=== PATIENT | female | born 1970 | race Caucasian/White ===

== ENCOUNTER → 2016-10-29 | Outpatient (CLI) | payer MEDICARE, OTHER ==
--- NOTE | 2016-10-29 12:16 | MM ---
Reason for exam: follow-up at short interval from prior study. Last mammogram was performed 6 months ago. History: Patient is nulliparous. Taking hormonal contraceptives for 22 years beginning at age 23. Physical Findings: Nurse did not find any significant physical abnormalities on exam. MG 3D Diag Mammo W/Cad MATHEW Bilateral CC and MLO view(s) were taken. ML view(s) were taken of the left breast. Prior study comparison: April 25, 2016, left breast MG 3d diag mammo w/cad LT. October 18, 2015, bilateral MG 3d diag mammo w/cad MATHEW. August 24, 2014, bilateral MG screening mammo w CAD. December 09, 2012, bilateral digital screening mammo w/CAD. The breast tissue is heterogeneously dense. This may lower the sensitivity of mammography. Nodularity far posteriorly and centrally left CC view stable for 1 year. Two areas of nodularity lateral left breast appear more defined, likely upper outer quadrant. These results were verbally communicated with the patient and result sheet given to the patient on 10/29/16. ASSESSMENT: Incomplete: need additional imaging evaluation, BI-RAD 0 RECOMMENDATION: Ultrasound of the left breast. (12-6 o'clock)
--- NOTE | 2016-10-29 12:18 | USB ---
Reason for exam: additional evaluation requested from abnormal screening. History: Patient is nulliparous. Taking hormonal contraceptives for 22 years beginning at age 23. US Breast Workup Limited LT Left breast ultrasound demonstrates a 0.6 x 0.3 x 0.6cm oval, cystic lesion at 3 o'clock, benign and a 1.6 x 0.4 x 1.4cm oval, cystic cluster versus complex cyst at 3 o'clock, follow up in 6 months. These results were verbally communicated with the patient and result sheet given to the patient on 10/29/16. ASSESSMENT: Probably benign, BI-RAD 3 RECOMMENDATION: Follow-up diagnostic mammogram and ultrasound of the left breast in 6 months.
== END | disposition home or self-care (01) ==
LOC: RADMAMWWP 10:40
PROVIDERS: ATTEND Obstetrics & Gynecology
DX: R92.8 Other abnormal and inconclusive findings on diagnostic imaging of breast (principal)
CPT/HCPCS: 76642; G0204; G0279

== ENCOUNTER → 2017-03-12 | Outpatient (CLI) | payer MEDICARE, OTHER ==
--- NOTE | 2017-03-12 14:33 | CT ---
EXAMINATION TYPE: CT brain wo/w con DATE OF EXAM: 03/12/2017 COMPARISON: NONE HISTORY: Headaches, dizziness and loss of balance CT DLP: 1891.0 mGycm Automated exposure control for dose reduction was used. CONTRAST: Preliminary CT head without contrast was performed. Then, CT scan of the head was performed with IV Contrast, patient injected with 100 mL of Omnipaque 300. FINDINGS: The precontrast CT is negative for hemorrhage or other noncontrast CT findings. There is no abnormal enhancing mass or midline shift identified. The ventricles and sulci are within normal rosas its in size. The globes are intact and the visualized sinuses are clear. IMPRESSION: NEGATIVE EXAMINATION, HEAD CT WITHOUT AND WITH CONTRAST.
== END | disposition home or self-care (01) ==
LOC: RADCTMAIN 13:27
PROVIDERS: ATTEND Psychiatry & Neurology Neurology
DX: R42 Dizziness and giddiness (principal); R51 Headache
CPT/HCPCS: 70470; Q9967

== ENCOUNTER → 2017-04-29 | Outpatient (CLI) | payer MEDICARE, OTHER ==
[2017-04-29 13:26] LABS: Hemoglobin A1C 5.5 % (4.2-6.1)
--- NOTE | 2017-05-01 07:18 | MM ---
Reason for exam: follow-up at short interval from prior study. Last mammogram was performed 6 months ago. History: Patient is nulliparous. Taking hormonal contraceptives for 22 years beginning at age 23. Physical Findings: Nurse did not find any significant physical abnormalities on exam. MG 3D Diag Mammo W/Cad LT CC and MLO view(s) were taken of the left breast. Prior study comparison: October 29, 2016, bilateral MG 3d diag mammo w/cad MATHEW. October 29, 2016, left breast US breast workup limited LT. April 25, 2016, left breast MG 3d diag mammo w/cad LT. The breast tissue is heterogeneously dense. This may lower the sensitivity of mammography. There is no discrete abnormality. These results were verbally communicated with the patient and result sheet given to the patient on 04/29/17. ASSESSMENT: Benign, BI-RAD 2 RECOMMENDATION: Routine screening mammogram of both breasts in 6 months. Back on schedule.
--- NOTE | 2017-05-01 07:25 | USB ---
Reason for exam: follow-up at short interval from prior study. History: Patient is nulliparous. Taking hormonal contraceptives for 22 years beginning at age 23. US Breast LT Left breast ultrasound includes all four quadrants, the retroareolar region and axilla. Finding demonstrate no cystic or solid lesion greater than 0.50c, and a 1.0 x 0.4 x 0.7cm lobular cystic cluster at 3 o'clock seen on previous. These results were verbally communicated with the patient and result sheet given to the patient on 04/29/17. ASSESSMENT: Benign, BI-RAD 2 RECOMMENDATION: Routine screening mammogram of both breasts in 6 months.
== END | disposition home or self-care (01) ==
LOC: RADMAMWWP 09:28
PROVIDERS: ATTEND Internal Medicine
DX: R92.8 Other abnormal and inconclusive findings on diagnostic imaging of breast (principal); F31.60 Bipolar disorder, current episode mixed, unspecified; Z79.899 Other long term (current) drug therapy
CPT/HCPCS: 83036; 80336; 76641; G0206; G0279

== ENCOUNTER → 2017-06-04 | Outpatient (CLI) | payer MEDICARE, OTHER | END | disposition home or self-care (01) | LOC: LABWHC1 14:56 | PROVIDERS: ATTEND Nurse Practitioner Acute Care | DX: R90.82 White matter disease, unspecified (principal) | CPT/HCPCS: 36415; 82040; 82042; 82784; 83916 ==

== ENCOUNTER → 2017-11-01 | Outpatient (CLI) | payer MEDICARE, OTHER ==
--- NOTE | 2017-11-04 11:32 | MM ---
Reason for exam: screening (asymptomatic). Last mammogram was performed 6 months ago. History: Patient is nulliparous. Taking hormonal contraceptives for 22 years beginning at age 23. Physical Findings: A clinical breast exam by your physician is recommended on an annual basis and results should be correlated with mammographic findings. MG 3D Screening Mammo W/Cad Bilateral CC and MLO view(s) were taken. XCCL view(s) were taken of the right breast. Prior study comparison: April 29, 2017, left breast MG 3d diag mammo w/cad LT. October 29, 2016, bilateral MG 3d diag mammo w/cad MATHEW. The breast tissue is heterogeneously dense. This may lower the sensitivity of mammography. There is no discrete abnormality. No significant changes when compared with prior studies. ASSESSMENT: Negative, BI-RAD 1 RECOMMENDATION: Routine screening mammogram of both breasts in 1 year.
== END ==
LOC: RADMAMWWP 08:39
PROVIDERS: ATTEND Internal Medicine
DX: Z12.31 Encounter for screening mammogram for malignant neoplasm of breast (principal)
CPT/HCPCS: 77063; 77067

== ENCOUNTER → 2019-04-06 | Outpatient (CLI) | payer MEDICARE, OTHER ==
--- NOTE | 2019-04-07 13:20 | MM ---
Reason for exam: screening (asymptomatic). Last mammogram was performed 1 year and 5 months ago. History: Patient is nulliparous. Taking hormonal contraceptives for 25 years beginning at age 23. Physical Findings: A clinical breast exam by your physician is recommended on an annual basis and results should be correlated with mammographic findings. MG 3D Screening Mammo W/Cad Bilateral CC and MLO view(s) were taken. XCCL view(s) were taken of the right breast. Prior study comparison: November 01, 2017, bilateral MG 3d screening mammo w/cad. April 29, 2017, left breast MG 3d diag mammo w/cad LT. The breast tissue is heterogeneously dense. This may lower the sensitivity of mammography. There is a bilobed mass at 12 o'clock posterior depth that has increased in size from priors. Probably left upper outer quadrant posterior depth lymph nodes. Confirm with ultrasound. ASSESSMENT: Incomplete: need additional imaging evaluation, BI-RAD 0 RECOMMENDATION: Ultrasound of both breasts. (right upper outer quadrant, left superior breast) [facility] will attempt to contact patient to return for ultrasound.
== END | disposition home or self-care (01) ==
LOC: RADMAMWWP 09:30
PROVIDERS: ATTEND Internal Medicine
DX: Z12.31 Encounter for screening mammogram for malignant neoplasm of breast (principal)
CPT/HCPCS: 77063; 77067

== ENCOUNTER → 2019-04-20 | Outpatient (CLI) | payer MEDICARE, OTHER ==
[2019-04-20 10:17] LABS: HCT 42.1 % (34.0-46.0); HGB 13.5 gm/dL (11.4-16.0); MCH 30.5 pg (25.0-35.0); MCHC 32.1 g/dL (31.0-37.0); MCV 95.1 fL (80.0-100.0); Mean Platelet Volume 6.7; Platelet Count 330 k/uL (150-450); RBC 4.43 m/uL (3.80-5.40); WBC 6.6 k/uL (3.8-10.6)
[2019-04-20 12:16] LABS: Amorphous Sediment,Urine Rare /hpf; Appearance,Urine Cloudy (Clear); Bacteria,Urine Occasional /hpf; Bilirubin,Urine Negative (Negative); Blood,Urine Negative (Negative); Color,Urine Light Yellow; Glucose,Urine (UA) Negative (Negative); Ketones,Urine Negative (Negative); Leukocyte Esterase,Urine Large (Negative); Mucus,Urine Rare /hpf; Nitrite,Urine Negative (Negative); Protein,Urine Negative (Negative); RBC,Urine 4 /hpf (0-5); Specific Gravity,Urine 1.008 (1.001-1.035); Squamous Epithelial Cell,Urine 16 /hpf (0-4); Urobilinogen,Urine <2.0 mg/dL (<2.0); WBC,Urine 7 /hpf (0-5)
[2019-04-20 17:56] LABS: African American GFR (CKD) 88.9 (60.0-200.0); Albumin 4.2 g/dL (3.80-4.90); Albumin/Globulin Ratio 2.63 (1.60-3.17); Anion Gap 10.2 mmol/L (4.00-12.00); BUN/Creat Ratio 13.33 Ratio (12.00-20.00); Calcium 9.2 mg/dL (8.7-10.3); Carbon Dioxide 23.8 mmol/L (21.6-31.8); Globulin 1.6 g/dL (1.6-3.3); Potassium 4.7 mmol/L (3.5-5.5); Total Bilirubin 0.3 mg/dL (0.2-1.2); Total Protein 5.8 g/dL (6.2-8.2)
== END | disposition home or self-care (01) ==
LOC: LABWHC1 09:07
PROVIDERS: ATTEND Psychiatry & Neurology Psychiatry
DX: I10 Essential (primary) hypertension (principal); E66.9 Obesity, unspecified; F31.60 Bipolar disorder, current episode mixed, unspecified; Z79.899 Other long term (current) drug therapy
CPT/HCPCS: 36415; 80053; 80061; 81001; 84439; 84443; 85027

== ENCOUNTER → 2019-05-08 | Outpatient (CLI) | payer MEDICARE, OTHER ==
--- NOTE | 2019-05-11 09:11 | USB ---
Reason for exam: additional evaluation requested from abnormal screening. History: Patient is nulliparous. Taking hormonal contraceptives for 25 years beginning at age 23. Physical Findings: Nurse Summary: probable nodes left breast upper outer quadrant, soft, movable, less that 1cm, bilateral nodularity, all soft, nodular, movable (nurse ts). US Breast Workup Limited MATHEW Right limited breast ultrasound including focal area of concern, retroareolar and axilla demonstrates a 2 x 2 x 2mm oval, cystic lesion at 9 o'clock appear benign, a 6 x 2 x 5mm cystic cluster at 10 o'clock appears benign and a 3 x 4 x 3mm cystic cluster at 10 o'clock probably benign. Left limited breast ultrasound including focal area of concern, retroareolar and axilla demonstrates a 6 x 5 x 7mm cystic cluster at 2 o'clock appears benign and a 3 x 2 x 2mm oval, cystic lesion at 3 o'clock appears benign. These results were verbally communicated with the patient and result sheet given to the patient on 05/08/19. ASSESSMENT: Probably benign, BI-RAD 3 RECOMMENDATION: Follow-up diagnostic mammogram and ultrasound of the right breast in 6 months. (10 o'clock)
== END | disposition home or self-care (01) ==
LOC: RADUSWWP 10:19
PROVIDERS: ATTEND Internal Medicine
DX: R92.8 Other abnormal and inconclusive findings on diagnostic imaging of breast (principal)

== ENCOUNTER → 2019-06-09 | Outpatient (CLI) | payer MEDICARE, OTHER ==
[2019-06-09 10:54] LABS: HCT 39.7 % (34.0-46.0); MCH 31.6 pg (25.0-35.0); MCHC 32.7 g/dL (31.0-37.0); MCV 96.5 fL (80.0-100.0); Mean Platelet Volume 7.1; Platelet Count 266 k/uL (150-450); RBC 4.11 m/uL (3.80-5.40); RDW 12.9 % (11.5-15.5); WBC 6.5 k/uL (3.8-10.6)
[2019-06-09 18:05] LABS: ALT 18 U/L (8-44); AST 16 U/L (13-35); Albumin/Globulin Ratio 2.87 (1.60-3.17); Alkaline Phosphatase 59 U/L (41-126); Bilirubin, Conjugated <0.20 mg/dL (0.20-0.40); Globulin 1.5 g/dL (1.6-3.3); Total Bilirubin 0.2 mg/dL (0.2-1.2); Total Protein 5.8 g/dL (6.2-8.2)
== END | disposition home or self-care (01) ==
LOC: LABWHC1 09:53
PROVIDERS: ATTEND Psychiatry & Neurology Psychiatry
DX: F31.60 Bipolar disorder, current episode mixed, unspecified (principal)
CPT/HCPCS: 36415; 80076; 80164; 85027

== ENCOUNTER 2019-06-13 12:55 | Emergency (ER) | payer MEDICARE, OTHER ==
[2019-06-13 13:11] VITALS: BP 125/81; PULSE 100; RESP 18; TEMP 98
--- NOTE | 2019-06-13 13:44 | XR ---
EXAMINATION TYPE: XR foot complete LT , 3 VIEWS DATE OF EXAM ORDERED: 06/13/2019 HISTORY: pain. COMPARISON: None. FINDINGS: There is a mildly displaced Dickens fracture of the base of the left fifth metatarsal. No ad ditional fractures are seen. There is a small, plantar calcaneal spur. IMPRESSION: "DICKENS" FRACTURE OF THE BASE OF THE LEFT FIFTH METATARSAL. CODE A: INITIAL ENCOUNTER FOR CLOSED FRACTURE.
[2019-06-13] MEDS ORDERED: HYDROcodone/APAP 5-325MG 1 EACH TAB PO STA (14:20)
--- NOTE | 2019-06-13 14:32 | ED ---
General Adult HPI - General Chief complaint: Extremity Injury, Lower Stated complaint: foot pain Time Seen by Provider: 06/13/19 14:07 Source: patient Mode of arrival: ambulatory Limitations: no limitations - History of Present Illness Initial comments: Patient a 48-year-old female presenting to emergency Department with a chief complaint of left foot pain. Patient reports a previous Ted's fracture on the left foot that never fully healed. Patient reports today she was walking in the yard and she heard/felt a pop in the left foot followed by immediate pain. Patient reports pain with weightbearing. Patient reports the pain is 9 out of 10 and is exacerbated with plantar and dorsiflexion. Patient reports the pain started. Patient denies taking any medication to alleviate the pain. Patient reports she has an orthopedic boot that she will for her previous clay fracture. She denies numbness or tingling. - Related Data Allergies Allergy/AdvReac Type Severity Reaction Status Date / Time No Known Allergies Allergy Verified 06/13/19 13:07 Review of Systems ROS Statement: Those systems with pertinent positive or pertinent negative responses have been documented in the HPI. ROS Other: All systems not noted in ROS Statement are negative. Past Medical History Past Medical History: Asthma History of Any Multi-Drug Resistant Organisms: None Reported Additional Past Surgical History / Comment(s): stimulator, pain pump Past Psychological History: Bipolar, Depression Smoking Status: Never smoker Past Alcohol Use History: None Reported Past Drug Use History: None Reported General Exam Limitations: no limitations General appearance: alert, in no apparent distress Head exam: Present: atraumatic, normocephalic, normal inspection Eye exam: Present: normal appearance, PERRL, EOMI Pupils: Present: normal accommodation ENT exam: Present: normal exam, normal oropharynx, mucous membranes moist, TM's normal bilaterally, normal external ear exam Neck exam: Present: normal inspection, full ROM Respiratory exam: Present: normal lung sounds bilaterally Cardiovascular Exam: Present: regular rate, normal rhythm, normal heart sounds Extremities exam: Present: tenderness (Midfoot and fifth metatarsal tenderness.), normal capillary refill, other (+2 dorsalis pedis and posterior tibialis bilaterally.). Absent: normal inspection (Mild edema of the left foot. No lacerations or abrasions.no skin discoloration.), full ROM (Limited range of motion with plantar and dorsiflexion.) Back exam: Present: normal inspection, full ROM Neurological exam: Present: alert, oriented X3 Psychiatric exam: Present: normal affect, normal mood Skin exam: Present: warm, intact, normal color Course Vital Signs 06/13/19 13:07 Temperature 98 F Pulse Rate 100 Respiratory 18 Rate Blood Pressure 125/81 O2 Sat by Pulse 95 Oximetry Medical Decision Making - Medical Decision Making Patient is a 48-year-old female presenting to the emergency department with chief complaint of left foot pain. Patient reports a previous Clay fracture in the left foot that never completely healed. Patient reports that she was walking and she felt a crack. X-ray is indicative of the Clay fracture. Patient came to the ED with a boot and states she would rather use that then have another splint placed due to better stability from the boot. Patient given Hurley for pain control. Patient reports she is in a pain contract and wants to minimize her pain medication. Patient has Hurley at home. Patient states that she saw Dr. Finnegan previously and wants to see him again. Patient advised to follow-up with orthopedics. Strict return parameters were thoroughly discussed the patient was satting agreeable. Case discussed physician. Disposition Clinical Impression: Clay fracture Disposition: HOME SELF-CARE Condition: Stable Instructions (If sedation given, give patient instructions): Foot Fracture in Adults (ED) Additional Instructions: Patient advised to follow-up with orthopedics. Patient advised to alternate between Tylenol and ibuprofen for pain control. Please apply ice compress to minimize symptoms. Please return to emergency department if symptoms worsen. Is patient prescribed a controlled substance at d/c from ED?: No Referrals: Marian Avitia MD [Primary Care Provider] - 1-2 days Joshua Finnegan MD [STAFF PHYSICIAN] - 1-2 days Time of Disposition: 14:59
== END 2019-06-13 15:23 | disposition home or self-care (01) ==
LOC: EC 12:55
DX: S92.352A Displaced fracture of fifth metatarsal bone, left foot, initial encounter for closed fracture (principal); Y93.01 Activity, walking, marching and hiking; Y92.096 Garden or yard of other non-institutional residence as the place of occurrence of the external cause
CPT/HCPCS: 99283

== ENCOUNTER → 2019-06-17 | Outpatient (CLI) | payer MEDICARE, OTHER ==
[2019-06-17 15:53] LABS: HCT 44.2 % (34.0-46.0); HGB 14.2 gm/dL (11.4-16.0); MCH 30.8 pg (25.0-35.0); MCHC 32.3 g/dL (31.0-37.0); MCV 95.4 fL (80.0-100.0); Platelet Count 336 k/uL (150-450); RBC 4.63 m/uL (3.80-5.40); RDW 14.4 % (11.5-15.5); WBC 8.7 k/uL (3.8-10.6)
[2019-06-17 23:27] LABS: ALT 16 U/L (8-44); AST 14 U/L (13-35); Albumin/Globulin Ratio 2.56 (1.60-3.17); Alkaline Phosphatase 54 U/L (41-126); Bilirubin, Conjugated <0.20 mg/dL (0.20-0.40); Globulin 1.6 g/dL (1.6-3.3); Total Bilirubin 0.1 mg/dL (0.2-1.2); Total Protein 5.7 g/dL (6.2-8.2)
== END | disposition home or self-care (01) ==
LOC: LABWHC1 14:58
PROVIDERS: ATTEND Psychiatry & Neurology Psychiatry
DX: F31.60 Bipolar disorder, current episode mixed, unspecified (principal); Z79.899 Other long term (current) drug therapy
CPT/HCPCS: 36415; 80076; 80164; 85027

== ENCOUNTER → 2019-07-18 | Outpatient (CLI) | payer MEDICARE, OTHER ==
[2019-07-18 11:33] LABS: HGB 13.5 gm/dL (11.4-16.0); MCH 32.3 pg (25.0-35.0); MCV 97.9 fL (80.0-100.0); Mean Platelet Volume 6.6; Platelet Count 207 k/uL (150-450); RBC 4.19 m/uL (3.80-5.40); RDW 13.2 % (11.5-15.5); WBC 4.6 k/uL (3.8-10.6)
== END | disposition home or self-care (01) ==
LOC: LABWHC1 10:50
PROVIDERS: ATTEND Psychiatry & Neurology Psychiatry
DX: F31.60 Bipolar disorder, current episode mixed, unspecified (principal); Z79.899 Other long term (current) drug therapy
CPT/HCPCS: 36415; 80164; 84460; 85027

== ENCOUNTER → 2019-08-14 | Outpatient (CLI) | payer MEDICARE, OTHER ==
[2019-08-14 09:10] LABS: HGB 13.3 gm/dL (11.4-16.0); MCH 33.2 pg (25.0-35.0); MCHC 33.4 g/dL (31.0-37.0); MCV 99.3 fL (80.0-100.0); Mean Platelet Volume 6.3; Platelet Count 194 k/uL (150-450); RBC 4.02 m/uL (3.80-5.40); RDW 13.5 % (11.5-15.5); WBC 4.6 k/uL (3.8-10.6)
[2019-08-14 16:03] LABS: African American GFR (CKD) 78.2 (60.0-200.0); Anion Gap 6.9 mmol/L (4.00-12.00); Calcium 8.5 mg/dL (8.7-10.3); Carbon Dioxide 21.1 mmol/L (21.6-31.8); Potassium 4.5 mmol/L (3.5-5.5)
== END | disposition home or self-care (01) ==
LOC: LABWHC1 08:46
PROVIDERS: ATTEND Psychiatry & Neurology Psychiatry
DX: E21.3 Hyperparathyroidism, unspecified (principal); F31.60 Bipolar disorder, current episode mixed, unspecified; Z79.899 Other long term (current) drug therapy
CPT/HCPCS: 36415; 80048; 80164; 83970; 84460; 85027

== ENCOUNTER → 2019-09-16 | Outpatient (CLI) | payer MEDICARE, OTHER ==
[2019-09-16 16:28] LABS: ALT 56 U/L (8-44); AST 38 U/L (13-35); Albumin/Globulin Ratio 2.67 (1.60-3.17); Alkaline Phosphatase 56 U/L (41-126); Bilirubin, Conjugated <0.20 mg/dL (0.20-0.40); Globulin 1.5 g/dL (1.6-3.3); Total Bilirubin 0.3 mg/dL (0.3-1.2); Total Protein 5.5 g/dL (6.2-8.2)
== END | disposition home or self-care (01) ==
LOC: LABWHC1 09:40
PROVIDERS: ATTEND Psychiatry & Neurology Psychiatry
DX: R94.5 Abnormal results of liver function studies (principal)
CPT/HCPCS: 36415; 80076

== ENCOUNTER → 2019-10-06 | Outpatient (CLI) | payer MEDICARE, OTHER ==
[2019-10-06 18:43] LABS: ALT 27 U/L (8-44); AST 19 U/L (13-35); Albumin/Globulin Ratio 2.73 (1.60-3.17); Alkaline Phosphatase 57 U/L (41-126); Bilirubin, Conjugated <0.20 mg/dL (0.20-0.40); Globulin 1.5 g/dL (1.6-3.3); Total Bilirubin 0.3 mg/dL (0.3-1.2); Total Protein 5.6 g/dL (6.2-8.2)
[2019-10-06 19:09] LABS: Valproic Acid (Depakene) 84.5 ug/mL (50.0-100.0)
== END | disposition home or self-care (01) ==
LOC: LABWHC1 13:08
PROVIDERS: ATTEND Psychiatry & Neurology Psychiatry
DX: F31.60 Bipolar disorder, current episode mixed, unspecified (principal); Z79.899 Other long term (current) drug therapy
CPT/HCPCS: 36415; 80076; 80164

== ENCOUNTER → 2019-10-28 | Outpatient (CLI) | payer MEDICARE, OTHER ==
[2019-10-28 18:31] LABS: ALT 44 U/L (8-44); AST 39 U/L (13-35); Albumin/Globulin Ratio 2.56 (1.60-3.17); Alkaline Phosphatase 51 U/L (41-126); Bilirubin, Conjugated <0.20 mg/dL (0.20-0.40); Globulin 1.6 g/dL (1.6-3.3); Total Bilirubin 0.2 mg/dL (0.2-1.2); Total Protein 5.7 g/dL (6.2-8.2)
[2019-10-28 18:32] LABS: Valproic Acid (Depakene) 81.1 ug/mL (50.0-100.0)
== END | disposition home or self-care (01) ==
LOC: LABWHC1 10:14
PROVIDERS: ATTEND Psychiatry & Neurology Psychiatry
DX: F31.60 Bipolar disorder, current episode mixed, unspecified (principal); R94.5 Abnormal results of liver function studies
CPT/HCPCS: 36415; 80076; 80164; 82140

== ENCOUNTER → 2019-11-20 | Outpatient (CLI) | payer MEDICARE, OTHER ==
--- NOTE | 2019-11-20 09:22 | MM ---
Reason for exam: follow-up at short interval from prior study. Last mammogram was performed 7 months ago. History: Patient is nulliparous. Taking hormonal contraceptives for 25 years beginning at age 23. Physical Findings: Nurse Summary: 0.5 x 0.5cm nodule in the right breast at 10:30 (nurse ts). MG 3D Diag Mammo W/Cad RT CC and MLO view(s) were taken of the right breast. Prior study comparison: April 06, 2019, bilateral MG 3d screening mammo w/cad. November 01, 2017, bilateral MG 3d screening mammo w/cad. The breast tissue is heterogeneously dense. This may lower the sensitivity of mammography. There is chronic nodularity in the right breast. No significant new findings when compared with previous films. These results were verbally communicated with the patient and result sheet given to the patient on 11/20/19. ASSESSMENT: Benign, BI-RAD 2 RECOMMENDATION: Return to routine screening mammogram schedule for the right breast. Back on schedule.
--- NOTE | 2019-11-20 09:23 | USB ---
Reason for exam: follow-up at short interval from prior study. History: Patient is nulliparous. Taking hormonal contraceptives for 25 years beginning at age 23. US Breast Limited RT Right limited breast ultrasound including focal area of concern, retroareolar and axilla demonstrates a 7 x 5 x 8mm cystic cluster at 10 o'clock, stable from 05/08/19. These results were verbally communicated with the patient and result sheet given to the patient on 11/20/19. ASSESSMENT: Probably benign, BI-RAD 3 RECOMMENDATION: Ultrasound of the right breast in 6 months.
== END | disposition home or self-care (01) ==
LOC: RADMAMWWP 07:57
PROVIDERS: ATTEND Internal Medicine
DX: R92.8 Other abnormal and inconclusive findings on diagnostic imaging of breast (principal)
CPT/HCPCS: 77065; 76642; G0279; 77061

== ENCOUNTER → 2019-12-10 | Outpatient (CLI) | payer MEDICARE, OTHER ==
[2019-12-10 18:02] LABS: HCT 44.4 % (34.0-46.0); HGB 14.1 gm/dL (11.4-16.0); MCH 32.3 pg (25.0-35.0); MCHC 31.7 g/dL (31.0-37.0); Macrocytosis Slight; Platelet Count 213 k/uL (150-450); RBC 4.35 m/uL (3.80-5.40); RDW 12.7 % (11.5-15.5)
[2019-12-10 23:56] LABS: Valproic Acid (Depakene) 90.8 ug/mL (50.0-100.0)
[2019-12-10 23:59] LABS: Albumin 3.9 g/dL (3.80-4.90); Albumin/Globulin Ratio 2.17 (1.60-3.17); Bilirubin, Conjugated 0.2 mg/dL (0.20-0.40); Bilirubin,Unconjugated 0.2 mg/dL; Globulin 1.8 g/dL (1.6-3.3); Total Bilirubin 0.4 mg/dL (0.2-1.2); Total Protein 5.7 g/dL (6.2-8.2)
== END | disposition home or self-care (01) ==
LOC: LABWHC1 16:59
PROVIDERS: ATTEND Psychiatry & Neurology Psychiatry
DX: F31.60 Bipolar disorder, current episode mixed, unspecified (principal); Z79.899 Other long term (current) drug therapy
CPT/HCPCS: 36415; 80076; 80164; 85027

== ENCOUNTER → 2020-03-14 | Outpatient (CLI) | payer MEDICARE, OTHER ==
[2020-03-14 10:57] LABS: HCT 45.3 % (34.0-46.0); HGB 14.4 gm/dL (11.4-16.0); MCH 32.4 pg (25.0-35.0); MCHC 31.8 g/dL (31.0-37.0); MCV 102.1 fL (80.0-100.0); Mean Platelet Volume 7.6; Platelet Count 205 k/uL (150-450); RBC 4.44 m/uL (3.80-5.40); WBC 6.3 k/uL (3.8-10.6)
[2020-03-14 16:53] LABS: Valproic Acid (Depakene) 58.6 ug/mL (50.0-100.0)
[2020-03-14 17:30] LABS: African American GFR (CKD) 101.8 (60.0-200.0); Albumin 3.9 g/dL (3.80-4.90); Albumin/Globulin Ratio 2.17 (1.60-3.17); Calcium 8.9 mg/dL (8.7-10.3); Chol/HDL Ratio 3.59; Globulin 1.8 g/dL (1.6-3.3); LDL Cholesterol,Calculated 98.8 mg/dL (0.0-131.0); Non-African American GFR(CKD) 87.8 (60.0-200.0); Potassium 4.8 mmol/L (3.5-5.5); Total Bilirubin 0.4 mg/dL (0.2-1.2); Total Protein 5.7 g/dL (6.2-8.2); VLDL Calculation 20.2 mg/dL (5.00-40.00)
[2020-03-14 17:40] LABS: T4, Free (Free Thyroxine) 0.9 ng/dL (0.80-1.80)
== END | disposition home or self-care (01) ==
LOC: LABWHC1 09:22
PROVIDERS: ATTEND Psychiatry & Neurology Psychiatry
DX: E03.9 Hypothyroidism, unspecified (principal); F31.60 Bipolar disorder, current episode mixed, unspecified; Z79.899 Other long term (current) drug therapy
CPT/HCPCS: 36415; 80053; 80061; 80164; 82140; 84439; 84443; 85027

== ENCOUNTER → 2020-04-06 | Outpatient (CLI) | payer MEDICARE, OTHER ==
--- NOTE | 2020-04-06 13:26 | USB ---
Reason for exam: follow-up at short interval from prior study. History: Patient is nulliparous. Taking hormonal contraceptives for 25 years beginning at age 23. Physical Findings: Nurse did not find any significant physical abnormalities on exam. US Breast Limited RT Technologist: Elena Avina Right limited breast ultrasound including focal area of concern, retroareolar and axilla demonstrates a 0.4 x 0.3 x 0.2cm cystic cluster at 10 o'clock and a 0.8 x 1.0 x 0.4cm oval, cystic lesion at 11 o'clock. These results were verbally communicated with the patient and result sheet given to the patient on 04/06/20. ASSESSMENT: Probably benign, BI-RAD 3 RECOMMENDATION: Ultrasound of the right breast in 6 months. Return to routine screening mammogram schedule for both breasts. Patient is due now for mammogram.
== END | disposition home or self-care (01) ==
LOC: RADUSWWP 09:23
PROVIDERS: ATTEND Internal Medicine
DX: R92.8 Other abnormal and inconclusive findings on diagnostic imaging of breast (principal)

== ENCOUNTER → 2020-05-03 | Outpatient (CLI) | payer MEDICARE, OTHER ==
[2020-05-03 11:12] LABS: HCT 42.5 % (34.0-46.0); HGB 13.7 gm/dL (11.4-16.0); MCH 32.1 pg (25.0-35.0); MCHC 32.2 g/dL (31.0-37.0); MCV 99.8 fL (80.0-100.0); Mean Platelet Volume 7.9; Platelet Count 225 k/uL (150-450); RBC 4.25 m/uL (3.80-5.40); RDW 12.3 % (11.5-15.5); WBC 5.2 k/uL (3.8-10.6)
[2020-05-03 16:50] LABS: African American GFR (CKD) 77.7 (60.0-200.0); Anion Gap 6.2 mmol/L (4.00-12.00); Calcium 9.3 mg/dL (8.7-10.3); Carbon Dioxide 22.8 mmol/L (21.6-31.8); Potassium 4.2 mmol/L (3.5-5.5)
[2020-05-03 17:52] LABS: Hemoglobin A1C 5.2 % (4.0-6.0)
[2020-05-03 17:55] LABS: Valproic Acid (Depakene) 46.5 ug/mL (50.0-100.0)
== END | disposition home or self-care (01) ==
LOC: LABWHC1 09:15
PROVIDERS: ATTEND Psychiatry & Neurology Psychiatry
DX: F31.60 Bipolar disorder, current episode mixed, unspecified (principal); Z79.899 Other long term (current) drug therapy
CPT/HCPCS: 36415; 80048; 80164; 83036; 84460; 85027

== ENCOUNTER → 2020-05-13 | Outpatient (CLI) | payer MEDICARE, OTHER ==
--- NOTE | 2020-05-14 05:50 | US ---
EXAMINATION TYPE: US pelvic complete DATE OF EXAM: 05/13/2020 COMPARISON: NONE CLINICAL HISTORY: 49-year-old female N83.202 CYST OF LT OVARY. TECHNIQUE: Transabdominal (TA FINDINGS: EXAM MEASUREMENTS: Uterus: 6.2 x 2.1 x 3.0 cm Endometrial Stripe: .4 cm Right Ovary: 2.4 x 1.4 x 1.4 cm Left Ovary: 2.3 x 1.4 x 3.0 cm 1. Uterus: Anteverted wnl 2. Endometrium: wnl 3. Right Ovary: wnl 4. Left Ovary: Cystic area 2.1 x 1.3 x 1.9 cm 5. Bilateral Adnexa: wnl 6. Posterior cul-de-sac: wnl IMPRESSION: A 2.1 cm simple cyst of the left ovary, probable dominant follicle or functional cyst. If there is cl inical concern, a follow-up in 6-8 weeks can assess for involution.
== END | disposition home or self-care (01) ==
LOC: RADUSWWP 14:09
PROVIDERS: ATTEND Internal Medicine
DX: N83.202 Unspecified ovarian cyst, left side (principal)
CPT/HCPCS: 76856

== ENCOUNTER → 2020-08-11 | Outpatient (CLI) | payer MEDICARE, OTHER ==
--- NOTE | 2020-08-15 09:16 | MM ---
Reason for exam: screening (asymptomatic). Last mammogram was performed 9 months ago. History: Patient is nulliparous. Taking hormonal contraceptives for 25 years beginning at age 23. Physical Findings: A clinical breast exam by your physician is recommended on an annual basis and results should be correlated with mammographic findings. MG 3D Screening Mammo W/Cad Bilateral CC and MLO view(s) were taken. Prior study comparison: November 20, 2019, right breast MG 3d diag mammo w/cad RT. April 06, 2019, bilateral MG 3d screening mammo w/cad. November 01, 2017, bilateral MG 3d screening mammo w/cad. October 29, 2016, bilateral MG 3d diag mammo w/cad MATHEW. October 18, 2015, bilateral MG 3d diag mammo w/cad MATHEW. The breast tissue is heterogeneously dense. This may lower the sensitivity of mammography. There is chronic nodularity in the right breast posterior and central MLO view. Asymmetry posterior central left MLO view seen on 2017 and 2015. No significant changes when compared with prior studies. ASSESSMENT: Negative, BI-RAD 1 RECOMMENDATION: Routine screening mammogram of both breasts in 1 year.
== END | disposition home or self-care (01) ==
LOC: RADMAMWWP 14:00
PROVIDERS: ATTEND Internal Medicine
DX: Z12.31 Encounter for screening mammogram for malignant neoplasm of breast (principal)
CPT/HCPCS: 77063; 77067

== ENCOUNTER → 2020-12-20 | Outpatient (CLI) | payer MEDICARE, OTHER ==
[2020-12-20 19:01] LABS: HCT 44.1 % (37.2-46.3); MCH 31.7 pg (27.0-32.0); MCHC 31.7 g/dL (32.0-37.0); Mean Platelet Volume 10.9 fL (9.5-12.2); Platelet Count 233 X 10*3/uL (140-440); RBC 4.41 X 10*6/uL (4.10-5.20); RDW 13.4 % (11.5-14.5); WBC 7.36 X 10*3/uL (4.50-10.00)
[2020-12-20 20:59] LABS: Valproic Acid (Depakene) 67.9 ug/mL (50.0-100.0)
[2020-12-20 21:02] LABS: African American GFR (CKD) 87.6 (60.0-200.0); Anion Gap 9.8 mmol/L (4.00-12.00); BUN/Creat Ratio 18.89 Ratio (12.00-20.00); Calcium 9.5 mg/dL (8.7-10.3); Carbon Dioxide 20.2 mmol/L (21.6-31.8); Non-African American GFR(CKD) 75.6 (60.0-200.0); Potassium 5.1 mmol/L (3.5-5.5)
== END | disposition home or self-care (01) ==
LOC: LABWHC1 11:39
PROVIDERS: ATTEND Psychiatry & Neurology Psychiatry
DX: F31.60 Bipolar disorder, current episode mixed, unspecified (principal); Z79.899 Other long term (current) drug therapy
CPT/HCPCS: 36415; 80048; 80164; 85027

== ENCOUNTER → 2021-01-04 | Outpatient (CLI) | payer MEDICARE, OTHER ==
[2021-01-04 23:19] LABS: HCT 40.9 % (37.2-46.3); HGB 13.1 g/dL (12.0-15.0); MCH 32.2 pg (27.0-32.0); MCV 100.5 fL (80.0-97.0); Mean Platelet Volume 11.2 fL (9.5-12.2); Platelet Count 275 X 10*3/uL (140-440); RBC 4.07 X 10*6/uL (4.10-5.20); RDW 13.1 % (11.5-14.5); WBC 6.43 X 10*3/uL (4.50-10.00)
[2021-01-05 07:52] LABS: ALT 17 U/L (8-44); AST 18 U/L (13-35); Albumin/Globulin Ratio 2.22 (1.60-3.17); Alkaline Phosphatase 49 U/L (41-126); Bilirubin, Conjugated <0.20 mg/dL (0.20-0.40); Globulin 1.8 g/dL (1.6-3.3); Total Bilirubin 0.2 mg/dL (0.3-1.2); Total Protein 5.8 g/dL (6.2-8.2)
[2021-01-05 07:54] LABS: Valproic Acid (Depakene) 91.9 ug/mL (50.0-100.0)
== END | disposition home or self-care (01) ==
LOC: LABWHC1 15:39
PROVIDERS: ATTEND Psychiatry & Neurology Psychiatry
DX: F31.60 Bipolar disorder, current episode mixed, unspecified (principal); Z79.899 Other long term (current) drug therapy
CPT/HCPCS: 36415; 80076; 80164; 85027

== ENCOUNTER 2021-02-02 12:01 | Inpatient (IN) | payer MEDICARE, MEDICAID ==
[2021-02-02 13:08] LABS: Amphetamine Screen,Urine Not Detected (NotDetected); Barbiturate Screen,Urine Not Detected (NotDetected); Benzodiazepines Screen,Urine Not Detected (NotDetected); Cocaine Screen,Urine Not Detected (NotDetected); Methadone Screen, Urine Not Detected (NotDetected); Opiate Screen,Urine Not Detected (NotDetected); Oxycodone Screen, Urine Not Detected (NotDetected); Phencyclidine Screen,Urine Not Detected (NotDetected); Tricyclic Antidepressant,Urine Detected (NotDetected); Urn Cannabinoid Scrn Not Detected (NotDetected)
--- NOTE | 2021-02-02 13:26 | ED ---
Psych HPI - General Source: patient, RN notes reviewed Mode of arrival: ambulatory Limitations: no limitations <Fernadno Wang - Last Filed: 02/02/21 13:24> <Tommy Alfredo - Last Filed: 02/02/21 22:56> - General Chief Complaint: Psychiatric Symptoms Stated Complaint: mental health, Suicidal Time Seen by Provider: 02/02/21 12:24 - History of Present Illness Initial Comments: 50-year-old male presents emergency Department chief complaint of depression, suicidal ideation, hallucinations. Patient states that she suffers from bipolar disorder. Patient states that she's been experiencing increasing artery hallucinations and which she states that she is suicidal. Patient states that she took some extra Ativan and Seroquel few days ago. Denies any illicit drug use. No alcohol abuse. Patient does see a current psychiatrist. Patient denies any physical complaints. Patient states that she's had no recent medication changes. (Fernando Wang) - Related Data Home Medications Medication Instructions Recorded Confirmed ALPRAZolam [Xanax] 0.5 mg PO BID PRN 02/02/21 02/02/21 Albuterol Sulfate [Ventolin HFA] 2 puff INHALATION RT-Q6H PRN 02/02/21 02/02/21 Budesonide/Formoterol Fumarate 2 puff INHALATION RT-BID 02/02/21 02/02/21 [Symbicort 160-4.5 Mcg Inhaler] Calcium Carbonate [Calcium] 600 mg PO DAILY 02/02/21 02/02/21 Citalopram Hydrobromide [CeleXA] 20 mg PO DAILY 02/02/21 02/02/21 Cyanocobalamin (Vitamin B-12) 1,000 mcg PO DAILY 02/02/21 02/02/21 [Vitamin B-12] Dicyclomine [Bentyl] 20 mg PO BID PRN 02/02/21 02/02/21 Divalproex ER [Depakote ER] 500 mg PO BID 02/02/21 02/02/21 Enalapril [Vasotec] 5 mg PO DAILY 02/02/21 02/02/21 Ibuprofen [Motrin] 600 mg PO Q8HR PRN 02/02/21 02/02/21 Loratadine [Claritin] 10 mg PO DAILY 02/02/21 02/02/21 Meclizine [Antivert] 25 mg PO Q8H PRN 02/02/21 02/02/21 Montelukast [Singulair] 10 mg PO HS 02/02/21 02/02/21 Multivitamins, Thera [Multivitamin 1 tab PO DAILY 02/02/21 02/02/21 (formulary)] Pantoprazole Sodium [Protonix] 20 mg PO BID 02/02/21 02/02/21 Polyethylene Glycol 3350 [Miralax] 17 gm PO HS 02/02/21 02/02/21 Pramipexole [Mirapex] 0.5 mg PO BID 02/02/21 02/02/21 QUEtiapine FUMARATE [SEROquel] 300 mg PO BID@1200,2100 02/02/21 02/02/21 QUEtiapine [SEROquel] 200 mg PO DAILY 02/02/21 02/02/21 Topiramate [Topamax] 100 mg PO BID 02/02/21 02/02/21 atenoloL [Atenolol] 25 mg PO BID 02/02/21 02/02/21 Allergies Allergy/AdvReac Type Severity Reaction Status Date / Time No Known Allergies Allergy Verified 02/02/21 14:06 Review of Systems ROS Other: All systems not noted in ROS Statement are negative. <Fernando Wang - Last Filed: 02/02/21 13:24> ROS Other: All systems not noted in ROS Statement are negative. <Tommy Alfredo - Last Filed: 02/02/21 22:56> ROS Statement: Those systems with pertinent positive or pertinent negative responses have been documented in the HPI. Past Medical History Past Medical History: Asthma History of Any Multi-Drug Resistant Organisms: None Reported Past Surgical History: Hernia Repair Additional Past Surgical History / Comment(s): stimulator, pain pump, esophagus. Past Psychological History: Bipolar, Depression Smoking Status: Never smoker Past Alcohol Use History: None Reported Past Drug Use History: None Reported <Fernando Wang - Last Filed: 02/02/21 13:24> General Exam Limitations: no limitations General appearance: alert, in no apparent distress Head exam: Present: atraumatic, normocephalic, normal inspection Eye exam: Present: normal appearance, PERRL, EOMI. Absent: scleral icterus, conjunctival injection, periorbital swelling Neck exam: Present: normal inspection. Absent: tenderness, lymphadenopathy Respiratory exam: Present: normal lung sounds bilaterally. Absent: respiratory distress, wheezes, rales, rhonchi, stridor Cardiovascular Exam: Present: regular rate, normal rhythm, normal heart sounds. Absent: systolic murmur, diastolic murmur, rubs, gallop, clicks Neurological exam: Present: alert, oriented X3 Psychiatric exam: Present: flat affect Skin exam: Present: warm, dry, intact, normal color. Absent: rash <Fernando Wang - Last Filed: 02/02/21 13:24> Course Vital Signs 02/02/21 12:05 Temperature 98 F Pulse Rate 101 H Respiratory 18 Rate Blood Pressure 120/83 O2 Sat by Pulse 95 Oximetry Medical Decision Making <Tommy Alfredo - Last Filed: 02/02/21 22:56> - Medical Decision Making 50 female seen and evaluated by psychiatry ok for admission (Tommy Alfredo) - Lab Data Lab Results 02/02/21 02/02/21 Range/Units 12:33 22:07 Urine Opiates Screen Not Detected (NotDetected) Ur Oxycodone Screen Not Detected (NotDetected) Urine Methadone Screen Not Detected (NotDetected) Ur Propoxyphene Screen Not Detected (NotDetected) Ur Barbiturates Screen Not Detected (NotDetected) U Tricyclic Antidepress Detected H (NotDetected) Ur Phencyclidine Scrn Not Detected (NotDetected) Ur Amphetamines Screen Not Detected (NotDetected) U Methamphetamines Scrn Not Detected (NotDetected) U Benzodiazepines Scrn Not Detected (NotDetected) Urine Cocaine Screen Not Detected (NotDetected) U Marijuana (THC) Screen Not Detected (NotDetected) Coronavirus (PCR) Not Detected (Not Detectd) Disposition <Fernando Wang - Last Filed: 02/02/21 13:24> Is patient prescribed a controlled substance at d/c from ED?: No <Tommy Alfredo - Last Filed: 02/02/21 22:56> Clinical Impression: Depression, Suicidal ideation Disposition: ADMITTED IP TO THIS HOSP Condition: Fair Referrals: Marian Avitia MD [Primary Care Provider] - 1-2 days
[2021-02-03] MEDS ORDERED: MAG HYDROX/AL HYDROX/SIMETH 30 ML CUP PO PRN (00:01)
[2021-02-03] MEDS ORDERED: LORazepam 1 MG TAB PO PRN (00:01)
[2021-02-03] MEDS ORDERED: MAGNESIUM HYDROXIDE 2,400 MG/10 ML CUP PO PRN (00:01)
[2021-02-03] MEDS ORDERED: ACETAMINOPHEN TAB 325 MG TAB PO PRN (00:01)
[2021-02-03] MEDS ORDERED: LORazepam 2 MG/ML INJ IM PRN (00:09)
[2021-02-03] MEDS ORDERED: HALOPERIDOL LACTATE 5 MG/ML 1 ML VIAL IM PRN (00:10)
[2021-02-03] MEDS ORDERED: IBUPROFEN 600 MG TAB PO PRN (00:12)
[2021-02-03] MEDS ORDERED: DICYCLOMINE 20 MG TAB PO PRN (00:12)
[2021-02-03] MEDS ORDERED: MECLIZINE 25 MG TAB PO PRN (00:12)
[2021-02-03] MEDS: QUEtiapine 200 MG TAB PO SCH ×2 (00:36→21:22)
[2021-02-03] MEDS: TOPIRAMATE 100 MG TAB PO SCH ×3 (00:36→21:23)
[2021-02-03] MEDS ORDERED: DIVALPROEX ER 500 MG TAB.ER.24H PO SCH (09:00)
[2021-02-03] MEDS: lisinopriL 10 MG TAB PO SCH (09:03)
[2021-02-03] MEDS: CYANOCOBALAMIN 500 MCG TAB PO SCH (09:03)
[2021-02-03] MEDS: CITALOPRAM HYDROBROMIDE 20 MG TAB PO SCH (09:03)
[2021-02-03] MEDS: LORATADINE 10 MG TAB PO SCH (09:34)
[2021-02-03] MEDS: CALCIUM CARBONATE 500 MG CHEWABLE PO SCH (09:34)
[2021-02-03] MEDS: atenoloL 25 MG TAB PO SCH ×2 (09:34→21:21)
[2021-02-03] MEDS: PRAMIPEXOLE 0.5 MG TAB PO SCH ×2 (09:35→21:22)
[2021-02-03] MEDS: PANTOPRAZOLE 40 MG TABLET PO SCH (09:35)
[2021-02-03] MEDS: MULTIVITAMINS, THERA 1 EACH TAB PO SCH (09:35)
[2021-02-03] MEDS: ALBUTEROL INHALER 60 PUFF/8 GM INHALER (MHU) INHALATION PRN ×3 (09:51→21:19)
[2021-02-03] MEDS: SYMBICORT 160-4.5 MCG INHALER INHALATION SCH ×2 (13:01→21:20)
[2021-02-03] MEDS ORDERED: DIVALPROEX ER 250 MG TAB.ER.24H PO ONE (14:00)
[2021-02-03] MEDS ORDERED: DIVALPROEX ER 250 MG TAB.ER.24H PO SCH (14:00)
--- NOTE | 2021-02-03 14:51 | HP ---
HISTORY AND PHYSICAL DATE OF SERVICE: 02/03/2021 IDENTIFYING DATA: The patient is a 50-year-old female. She presented to the ED for evaluation. CHIEF COMPLAINT: The patient was depressed. She had suicide thinking and hallucinations. She took extra medication in the last few days. HISTORY OF PRESENTING ILLNESS: The patient was the primary source of information. She was near mute and it was difficult to get even basic information from the patient. She did not provide any information about her living circumstances or any issues relating to her coming to the hospital. She apparently has had one past psychiatric hospitalization in the early 1999. She is followed by Dr. Mccoy. She was unclear when she last seen Dr. Mccoy. Psychotropic medications that were listed include Seroquel 200 mg in morning, 300 mg at noon and 300 mg at bedtime; Depakote 500 mg twice a day, Celexa 20 mg a day and Xanax 0.5 mg twice a day p.r.n. The patient was unclear as to whether or not she had been taking her medications consistently at home. She indicated that she has a diagnosis of bipolar disorder. She gave some vague ideas about episodes of suzanne that she might have. She seemed to suggest that her mood would go up and that she gets energized, this can go on for 2 to 3 days. She also noted episodes of depression. She was not very clear as to whether the apparent manic episodes can turn into depression. The patient was not able to give any information about her past psychiatric hospitalization nor what factors have come into play where she has remained out of a hospitalization until this current admission. She did not provide any information about the current precipitating factors. She reports no history with substance use issues. Her drug screen was negative. Depakote level was 46.3, which generally would be congruent with her current dose of a 1000 mg a day. She was not able to provide any information about other medicines she may have been on at different points during the recent past. She did not give much information as to whether she feels the current medicines she is on have been beneficial. The main issue she presented with was that she is having voices. She has voices talking to her. She has command hallucinations with voices telling her to do things such as talk to her mother. Also, the voices tell her to hurt herself. It is noted that early in the day today she was found in her room with a pillowcase tied fairly tightly around her neck. She said the voices were telling her to harm herself in this way. She was placed on one-to-one. She did not identify any problems or difficulties with her psychotropic medications. She is admitted for further evaluation. SUBSTANCE USE HISTORY: None reported. PAST MEDICAL HISTORY: The patient indicated she has some breathing difficulties, possibly asthma, and hypertension as her only immediate general health issues. FAMILY AND SOCIAL HISTORY: No information available. MENTAL STATUS EXAM: Patient sat in a slumped posture with her head down. She gave no eye contact. Psychomotor activity was slowed. She would respond to questions with one-word answers. She did not say much. Her affect was flat. Her mood depressed. She was significantly distressed. She reports auditory hallucinations and command hallucinations. She has made recent efforts to harm herself, including on the unit by tying a pillowcase around her neck. She appeared to be aware of circumstances and surroundings, though she did not make an effort to answer formal cognitive questions. PHYSICAL EXAMINATION: As per medical consultation. ASSESSMENT: This 50-year-old female is diagnosed with major depression. She gives a somewhat vague history suggestive of some bipolar symptoms, though the information is not very clear. We have no information about precipitating factors or support system. Strengths include her being able to express some of her distress. Weakness includes responding to auditory hallucinations. DIAGNOSES: 1. Psychosis, NOS. 2. Major depression. 3. Rule out bipolar affective disorder. 4. Asthma. 5. Hypertension. RECOMMENDATIONS: Patient will be admitted for a comprehensive medical, psychiatric and psychosocial evaluation. We will engage the patient in individual and group therapeutic activities. At this point I will continue psychotropic medications the same, namely the Celexa 20 mg a day. I will also Depakote though increase the dose to 750 mg twice a day. I will continue Seroquel 600 mg twice a day. It is noted the patient is also on Topamax 100 mg twice a day for unclear indication. We will need to make efforts to make contact with Dr. Mccoy. At this point, Dr. Mccoy is the only potential call or contact centre team leader we have that may be able to provide further information about current circumstances and to help with treatment planning. We will focus on stabilization and discharge planning. MMODL / IJN: [id number] /
--- NOTE | 2021-02-03 15:15 | P.CONS ---
History of Present Illness - Reason for Consult Medical clearance - History of Present Illness She'll with the history of bipolar disorder came in the with comments of depression and suicidal subsequently admitted to psychiatric floor. Patient does have history of hypertension blood pressure is well controlled at this time on the lisinopril. Patient denied any fever chills nausea vomiting abdominal pain dysuria patient although seems to be quite a bit depressed. She does have history of asthma patient used to smoke until 6 years ago. Review of Systems REVIEW OF SYSTEMS: CONSTITUTIONAL: No fever, no malaise, no fatigue. HEENT: No recent visual problems or hearing problems. Denied any sore throat. CARDIOVASCULAR: No chest pain, orthopnea, PND, no palpitations, no syncope. PULMONARY: No shortness of breath, no cough, no hemoptysis. GASTROINTESTINAL: No diarrhea, no nausea, no vomiting, no abdominal pain. NEUROLOGICAL: No headaches, no weakness, no numbness. HEMATOLOGICAL: Denies any bleeding or petechiae. GENITOURINARY: Denies any burning micturition, frequency, or urgency. MUSCULOSKELETAL/RHEUMATOLOGICAL: Denies any joint pain, swelling, or any muscle pain. ENDOCRINE: Denies any polyuria or polydipsia. The rest of the 14-point review of systems is negative. Past Medical History Past Medical History: Asthma History of Any Multi-Drug Resistant Organisms: None Reported Past Surgical History: Hernia Repair Additional Past Surgical History / Comment(s): stimulator, pain pump, esophagus. Past Anesthesia/Blood Transfusion Reactions: No Reported Reaction Past Psychological History: Bipolar, Depression Smoking Status: Never smoker Past Alcohol Use History: None Reported Past Drug Use History: None Reported Medications and Allergies Home Medications Medication Instructions Recorded Confirmed Type ALPRAZolam [Xanax] 0.5 mg PO BID PRN 02/02/21 02/02/21 History Albuterol Sulfate [Ventolin HFA] 2 puff INHALATION RT-Q6H PRN 02/02/21 02/02/21 History Budesonide/Formoterol Fumarate 2 puff INHALATION RT-BID 02/02/21 02/02/21 History [Symbicort 160-4.5 Mcg Inhaler] Calcium Carbonate [Calcium] 600 mg PO DAILY 02/02/21 02/02/21 History Citalopram Hydrobromide [CeleXA] 20 mg PO DAILY 02/02/21 02/02/21 History Cyanocobalamin (Vitamin B-12) 1,000 mcg PO DAILY 02/02/21 02/02/21 History [Vitamin B-12] Dicyclomine [Bentyl] 20 mg PO BID PRN 02/02/21 02/02/21 History Divalproex ER [Depakote ER] 500 mg PO BID 02/02/21 02/02/21 History Enalapril [Vasotec] 5 mg PO DAILY 02/02/21 02/02/21 History Ibuprofen [Motrin] 600 mg PO Q8HR PRN 02/02/21 02/02/21 History Loratadine [Claritin] 10 mg PO DAILY 02/02/21 02/02/21 History Meclizine [Antivert] 25 mg PO Q8H PRN 02/02/21 02/02/21 History Montelukast [Singulair] 10 mg PO HS 02/02/21 02/02/21 History Multivitamins, Thera [Multivitamin 1 tab PO DAILY 02/02/21 02/02/21 History (formulary)] Pantoprazole Sodium [Protonix] 20 mg PO BID 02/02/21 02/02/21 History Polyethylene Glycol 3350 [Miralax] 17 gm PO HS 02/02/21 02/02/21 History Pramipexole [Mirapex] 0.5 mg PO BID 02/02/21 02/02/21 History QUEtiapine FUMARATE [SEROquel] 300 mg PO BID@1200,2100 02/02/21 02/02/21 History QUEtiapine [SEROquel] 200 mg PO DAILY 02/02/21 02/02/21 History Topiramate [Topamax] 100 mg PO BID 02/02/21 02/02/21 History atenoloL [Atenolol] 25 mg PO BID 02/02/21 02/02/21 History Allergies Allergy/AdvReac Type Severity Reaction Status Date / Time No Known Allergies Allergy Verified 02/02/21 14:06 Physical Exam Vitals: Vital Signs Temp Pulse Pulse Resp BP 02/03/21 09:15 97.6 F 113 H 20 116/75 02/03/21 00:22 98.2 F 93 18 116/83 Intake and Output 02/03/21 02/03/21 02/03/21 06:59 14:59 22:59 Other: Weight 74.843 kg PHYSICAL EXAMINATION: GENERAL: The patient is alert and oriented x3, not in any acute distress. Well developed, well nourished. HEENT: Pupils are round and equally reacting to light. EOMI. No scleral icterus. No conjunctival pallor. Normocephalic, atraumatic. No pharyngeal erythema. No thyromegaly. CARDIOVASCULAR: S1 and S2 present. No murmurs, rubs, or gallops. PULMONARY: Chest is clear to auscultation, no wheezing or crackles. ABDOMEN: Soft, nontender, nondistended, normoactive bowel sounds. No palpable organomegaly. MUSCULOSKELETAL: No joint swelling or deformity. EXTREMITIES: No cyanosis, clubbing, or pedal edema. NEUROLOGICAL: Gross neurological examination did not reveal any focal deficits. SKIN: No rashes. Assessment and Plan Plan: -Hypertension patient blood pressure is well controlled on lisinopril which is reported to be continued -Asthma without any acute exacerbation continue with inhaled steroids inhalational treatments -Depression and suicidal ideation: Management as per primary service.
[2021-02-03 16:13] LABS: Hemoglobin A1C 5.2 % (4.0-6.0)
[2021-02-03] MEDS: MONTELUKAST 10 MG TAB PO SCH (21:21)
[2021-02-03] MEDS: DIVALPROEX ER 250 MG TAB.ER.24H PO SCH (21:21)
[2021-02-03] MEDS: polyethylene glycoL 3350 17 GM POWD.PACK PO SCH (21:27)
[2021-02-04 07:41] LABS: WBC 6.9 k/uL (3.8-10.6)
[2021-02-04 07:42] LABS: Basophils # (A) 0.1 k/uL (0-0.2); Basophils % (A) 1 %; Eosinophils # (A) 0.1 k/uL (0-0.7); Eosinophils % (A) 2 %; HCT 40.5 % (34.0-46.0); HGB 13.7 gm/dL (11.4-16.0); Lymphocytes # (A) 2.7 k/uL (1.0-4.8); Lymphocytes % (A) 40 %; MCH 33.9 pg (25.0-35.0); MCHC 33.7 g/dL (31.0-37.0); MCV 100.5 fL (80.0-100.0); Macrocytosis Slight; Mean Platelet Volume 7.6; Monocytes # (A) 0.6 k/uL (0-1.0); Monocytes % (A) 8 %; Neutrophils # (A) 3.1 k/uL (1.3-7.7); Neutrophils % (A) 45 %; Platelet Count 236 k/uL (150-450); RBC 4.03 m/uL (3.80-5.40); RDW 13.7 % (11.5-15.5)
[2021-02-04 07:57] LABS: Albumin 3.1 g/dL (3.5-5.0); Calcium 8.6 mg/dL (8.4-10.2); Potassium 4.1 mmol/L (3.5-5.1); Total Bilirubin 0.4 mg/dL (0.2-1.3); Total Protein 5.6 g/dL (6.3-8.2)
[2021-02-04] MEDS: ALBUTEROL INHALER 60 PUFF/8 GM INHALER (MHU) INHALATION PRN ×2 (08:59→21:50)
[2021-02-04] MEDS: DIVALPROEX ER 250 MG TAB.ER.24H PO SCH ×2 (09:03→21:46)
[2021-02-04] MEDS: LORATADINE 10 MG TAB PO SCH (09:03)
[2021-02-04] MEDS: TOPIRAMATE 100 MG TAB PO SCH ×2 (09:03→21:47)
[2021-02-04] MEDS: MULTIVITAMINS, THERA 1 EACH TAB PO SCH (09:03)
[2021-02-04] MEDS: PRAMIPEXOLE 0.5 MG TAB PO SCH ×2 (09:03→21:47)
[2021-02-04] MEDS: lisinopriL 10 MG TAB PO SCH (09:03)
[2021-02-04] MEDS: CITALOPRAM HYDROBROMIDE 20 MG TAB PO SCH (09:04)
[2021-02-04] MEDS: PANTOPRAZOLE 40 MG TABLET PO SCH (09:04)
[2021-02-04] MEDS: CYANOCOBALAMIN 500 MCG TAB PO SCH (09:04)
[2021-02-04] MEDS: CALCIUM CARBONATE 500 MG CHEWABLE PO SCH (09:04)
[2021-02-04] MEDS: atenoloL 25 MG TAB PO SCH ×2 (09:05→21:44)
[2021-02-04] MEDS: SYMBICORT 160-4.5 MCG INHALER INHALATION SCH ×2 (09:09→22:13)
--- NOTE | 2021-02-04 16:04 | P.PN ---
Progress Note - Text Progress Note Date: 02/04/21 Clinical Problems: Major depressive disorder severe with psychotic features, rule out schizoaffective disorder, rule out schizophrenia, rule out bipolar affective disorder with psychotic features Interim history: I reviewed the medical record and interviewed the patient. She is a 50-year-old single female admitted to the psychiatric unit with complaints of depression, suicidal ideation and command auditory hallucinations. She was most distressed about the auditory hallucinations. She described command hallucinations, thought insertion and thought control. She belief that "someone" was the only controlling her thoughts but also controlling "my body." She believes that the "voices" have diminished since he was admitted to the unit. She denied side effects to the increased dose of Depakote ER (from 750 mg to 75 mg twice a day). She is intermittently attending therapeutic groups and activities. He slept 8 hours last night. Mental status exam: She presented as a disheveled-appearing 50-year-old female who was pleasant on approach. She made eye contact and appeared to attend to the interview. She had no prominent physical abnormalities. She had a flat facial expression. She was alert and oriented to person, place and time. She had marked psychomotor retardation but no abnormal involuntary movements. Her speech was not spontaneous and had decreased rate, rhythm and volume. Her affect was depressed and not reactive. She denied current suicidal ideation or wishes. She expressed oppressive cognitions including hopelessness, helplessness and worthlessness. She did not express clear ideas reference, paranoid ideation or delusions. Her thinking was concrete. Associations were coherent and LOGICAL. She did not appear to be responding to internal stimuli. Assessment: She is seriously mentally ill and mentally improve from admission. However, she appears less withdrawn than on admission. Plan: T inpatient treatment. Discontinue one-to-one, continue Depakote 750 mg twice a day and obtain steady state serum level. Continue Seroquel 600 mg at bedtime and titrated according to clinical response and tolerance. Haldol and/or Ativan for agitation or aggression. Encourage participation in therapeutic groups and activities. Evaluate clinical status response to treatment daily basis.
[2021-02-04] MEDS: QUEtiapine 200 MG TAB PO SCH (21:46)
[2021-02-04] MEDS: MONTELUKAST 10 MG TAB PO SCH (21:47)
[2021-02-04] MEDS: polyethylene glycoL 3350 17 GM POWD.PACK PO SCH (21:47)
[2021-02-05] MEDS: SYMBICORT 160-4.5 MCG INHALER INHALATION SCH ×2 (09:06→21:49)
[2021-02-05] MEDS: DIVALPROEX ER 250 MG TAB.ER.24H PO SCH ×2 (09:07→21:46)
[2021-02-05] MEDS: CALCIUM CARBONATE 500 MG CHEWABLE PO SCH (09:07)
[2021-02-05] MEDS: atenoloL 25 MG TAB PO SCH ×2 (09:07→21:45)
[2021-02-05] MEDS: CITALOPRAM HYDROBROMIDE 20 MG TAB PO SCH (09:07)
[2021-02-05] MEDS: CYANOCOBALAMIN 500 MCG TAB PO SCH (09:07)
[2021-02-05] MEDS: MULTIVITAMINS, THERA 1 EACH TAB PO SCH (09:08)
[2021-02-05] MEDS: PRAMIPEXOLE 0.5 MG TAB PO SCH ×2 (09:08→21:45)
[2021-02-05] MEDS: TOPIRAMATE 100 MG TAB PO SCH ×2 (09:08→21:46)
[2021-02-05] MEDS: LORATADINE 10 MG TAB PO SCH (09:08)
[2021-02-05] MEDS: lisinopriL 10 MG TAB PO SCH (09:08)
[2021-02-05] MEDS: PANTOPRAZOLE 40 MG TABLET PO SCH (09:08)
[2021-02-05] MEDS: ALBUTEROL INHALER 60 PUFF/8 GM INHALER (MHU) INHALATION PRN (12:37)
--- NOTE | 2021-02-05 13:53 | P.PN ---
Progress Note - Text Progress Note Date: 02/05/21 Clinical Problems: Schizoaffective disorder depressed type, rule out schizophrenia, rule out major depressive disorder with psychotic features Interim history: I reviewed the medical record and interviewed the patient. She complained of a difficult night. The "voices" woke her up from her sleep and work "controlling" her body. When asked her what the voices were doing she pointed to her flank abdomen and legs and said that they were controlling them. She also complained that the voices were commanding and derogatory. She refused to open her eyes she was so frightened and the voices were repeatedly commanding her to open her eyes. We reviewed her medications. She stated that she's been taking Seroquel "for many years." The [place] was effective in suppressing the voices initially but have become less effective of late. We discussed treatment alternatives and agreed to a trial of Haldol. I explained that if she is able to help tolerate the Haldol and it is effective we can begin to taper and discontinue the Seroquel. Mental status exam: She presented as a casually groomed 50-year-old female who was pleasant on approach. She made eye contact and appeared to attend to the interview. She had no prominent physical abnormalities. She had a flat facial expression. She was alert and oriented to person, place and time. She had marked psychomotor retardation but no abnormal involuntary movements. Her speech was not spontaneous and had decreased rate, rhythm and volume. Her affect was anxious and depressed. She denied current suicidal ideation or wishes. Her thinking was concrete and associations were coherent and logical. She described ongoing hallucinations that were derogatory and commanding. However, she did not appear to be responding to internal stimuli during our interview. Assessment: She is seriously mentally ill and minimally improve from admission. I suspect that she has a primary psychotic illness. Plan: Continue inpatient treatment. Continue safety precautions. Continue Depakote 750 mg twice a day and obtain steady state serum level. Continue Seroquel 600 mg at bedtime. Begin Haldol 2 mg by mouth twice a day and titrated to clinical response and tolerance. Consider tapering to discontinue Seroquel if the Haldol was effective.. Haldol and/or Ativan for agitation or aggression. Encourage participation in therapeutic groups and activities. Evaluate clinical status response to treatment daily basis.
[2021-02-05] MEDS: MONTELUKAST 10 MG TAB PO SCH (21:46)
[2021-02-05] MEDS: QUEtiapine 200 MG TAB PO SCH (21:46)
[2021-02-05] MEDS: polyethylene glycoL 3350 17 GM POWD.PACK PO SCH (21:48)
[2021-02-06] MEDS: atenoloL 25 MG TAB PO SCH ×2 (08:48→22:27)
[2021-02-06] MEDS: DIVALPROEX ER 250 MG TAB.ER.24H PO SCH ×2 (08:58→22:27)
[2021-02-06] MEDS: CYANOCOBALAMIN 500 MCG TAB PO SCH (08:58)
[2021-02-06] MEDS: PRAMIPEXOLE 0.5 MG TAB PO SCH ×2 (08:58→22:29)
[2021-02-06] MEDS: CALCIUM CARBONATE 500 MG CHEWABLE PO SCH (08:58)
[2021-02-06] MEDS: LORATADINE 10 MG TAB PO SCH (08:59)
[2021-02-06] MEDS: MULTIVITAMINS, THERA 1 EACH TAB PO SCH (08:59)
[2021-02-06] MEDS: TOPIRAMATE 100 MG TAB PO SCH ×2 (08:59→22:28)
[2021-02-06] MEDS: PANTOPRAZOLE 40 MG TABLET PO SCH (08:59)
[2021-02-06] MEDS: CITALOPRAM HYDROBROMIDE 20 MG TAB PO SCH (08:59)
[2021-02-06] MEDS: SYMBICORT 160-4.5 MCG INHALER INHALATION SCH ×2 (09:00→22:26)
[2021-02-06] MEDS: lisinopriL 10 MG TAB PO SCH (09:04)
--- NOTE | 2021-02-06 10:54 | P.PN ---
Progress Note - Text Progress Note Date: 02/06/21 Interval History: Patient was seen attending group and was directable and agreeable to speak with film writer in the office. Patient continues to endorse significant symptoms of depression and psychosis. At this time, the patient is not reporting any suicidal or homicidal ideation, intention, and/or plan. She does continue to endorse auditory hallucinations. She states that she hears voices that are saying mean things to her commanding her to do things. She states that this continues to be more intense than usual. She expresses that they occasionally tell her to hurt herself. She is currently not reporting any visual hallucinations. She is also expresses that these voices appear to control how she feels and makes her feel sick or have pain in her body. The patient has been adherent with her medications but is not reporting any significant improvement at this time. She is not reporting any issues with sleep or appetite. Mental Status Exam: General Appearance: Patient appears to be stated age is alert, directable, and cooperative. Fair hygiene and grooming. Behavior: Patient is calmly seated without any agitated behavior. Psychomotor slowing is evident. Eye contact is intermittent. Speech: Patient's speech is fluent and nonpressured. Monotone, nonspontaneous, low in volume. Mood/Affect: Mood is described as depressed. Affect is mood congruent and flat. Suicidality/Homicidality: Patient is currently denying any suicidal or homicidal ideation, intention, and/or plan. Perceptions: Patient endorses auditory hallucinations but no visual hallucinations. Though content/process: The patient does endorse some delusions of control. Thought process appears to be linear and this time. Memory and concentration: AOX3, grossly intact for the purposes of this session Judgment and insight: Fair Assessment Schizoaffective disorder, depressed type Plan: -Patient continues to meet criteria for inpatient psychiatric admission for symptom stabilization and safety. Patient has signed adult voluntary form. -Medications: Continue Depakote 750 mg by mouth twice a day for mood stabilization Continue citalopram 20 mg by mouth daily for depression/anxiety Continue Topamax 100 mg by mouth twice a day for mood stabilization Decrease Seroquel to 400 mg by mouth at bedtime for psychosis as we cross titrate with Haldol. Increase Haldol to 3 mg by mouth twice a day for psychosis -When necessary Ativan and Haldol for agitation/aggression. -NRT - nicotine patch -SW on board for discharge planning. Encouraged the patient to participate in milieu.
[2021-02-06] MEDS ORDERED: QUEtiapine 200 MG TAB PO SCH (21:00)
[2021-02-06] MEDS: haloperidoL 1 MG TAB PO SCH (22:28)
[2021-02-06] MEDS: MONTELUKAST 10 MG TAB PO SCH (22:28)
[2021-02-06] MEDS: polyethylene glycoL 3350 17 GM POWD.PACK PO SCH (22:31)
[2021-02-07] MEDS: CITALOPRAM HYDROBROMIDE 20 MG TAB PO SCH (09:10)
[2021-02-07] MEDS: PRAMIPEXOLE 0.5 MG TAB PO SCH ×2 (09:10→21:09)
[2021-02-07] MEDS: CYANOCOBALAMIN 500 MCG TAB PO SCH (09:10)
[2021-02-07] MEDS: LORATADINE 10 MG TAB PO SCH (09:10)
[2021-02-07] MEDS: SYMBICORT 160-4.5 MCG INHALER INHALATION SCH ×2 (09:11→21:06)
[2021-02-07] MEDS: MULTIVITAMINS, THERA 1 EACH TAB PO SCH (09:11)
[2021-02-07] MEDS: lisinopriL 10 MG TAB PO SCH (09:12)
[2021-02-07] MEDS: TOPIRAMATE 100 MG TAB PO SCH ×2 (09:12→21:10)
[2021-02-07] MEDS: haloperidoL 1 MG TAB PO SCH ×2 (09:12→21:08)
[2021-02-07] MEDS: CALCIUM CARBONATE 500 MG CHEWABLE PO SCH (09:12)
[2021-02-07] MEDS: DIVALPROEX ER 250 MG TAB.ER.24H PO SCH ×2 (09:12→21:08)
[2021-02-07] MEDS: atenoloL 25 MG TAB PO SCH ×2 (09:13→21:08)
[2021-02-07] MEDS: PANTOPRAZOLE 40 MG TABLET PO SCH (09:13)
--- NOTE | 2021-02-07 11:14 | P.PN ---
Progress Note - Text Progress Note Date: 02/07/21 Interval History: Patient was seen attending group and was directable and agreeable to speak with policy writer sales in the office. Patient does express that she is feeling better. She continues endorse significant symptoms of depression but states that these are mildly improving. She endorses low mood, low energy as well as difficulty sleeping. She reports she slept poorly last night and approximates only 2-3 hours at most. She denies any suicidal or homicidal ideation, intention, and/or plan. She reports that her auditory hallucinations have decreased significantly and has not experienced them last night or today. She continues to report some pain which she attributes to "the voices causing meet this pain." She has been adherent with her medications is not reporting any significant side effects at this time. Mental Status Exam: General Appearance: Patient appears to be stated age is alert, directable, and cooperative. Fair hygiene and grooming. Behavior: Patient is calmly seated without any agitated behavior. Psychomotor slowing is evident. Eye contact is improving. Speech: Patient's speech is fluent and nonpressured. Monotone, nonspontaneous, low in volume. Mood/Affect: Mood is described as depressed. Affect is mood congruent and flat. Suicidality/Homicidality: Patient is currently denying any suicidal or homicidal ideation, intention, and/or plan. Perceptions: The patient is currently not endorsing any auditory or visual hallucinations. Though content/process: The patient does endorse some delusions of control. Thought process appears to be linear and this time. Memory and concentration: AOX3, grossly intact for the purposes of this session Judgment and insight: Fair Assessment Schizoaffective disorder, depressed type Plan: -Patient continues to meet criteria for inpatient psychiatric admission for symptom stabilization and safety. Patient has signed adult voluntary form. -Medications: Continue Depakote 750 mg by mouth twice a day for mood stabilization Continue citalopram 20 mg by mouth daily for depression/anxiety Continue Topamax 100 mg by mouth twice a day for mood stabilization Decrease Seroquel to 200 mg by mouth at bedtime as a cross titrate with Haldol Continue Haldol 3 mg by mouth twice a day for psychosis Start melatonin 5 mg by mouth at bedtime for insomnia -When necessary Ativan and Haldol for agitation/aggression. -NRT - nicotine patch -SW on board for discharge planning. Encouraged the patient to participate in milieu.
[2021-02-07] MEDS ORDERED: QUEtiapine 200 MG TAB PO SCH (21:00)
[2021-02-07] MEDS: MELATONIN 5 MG TABLET PO SCH (21:08)
[2021-02-07] MEDS: polyethylene glycoL 3350 17 GM POWD.PACK PO SCH (21:09)
[2021-02-07] MEDS: MONTELUKAST 10 MG TAB PO SCH (21:09)
[2021-02-08] MEDS: DIVALPROEX ER 250 MG TAB.ER.24H PO SCH ×2 (08:20→21:00)
[2021-02-08] MEDS: haloperidoL 1 MG TAB PO SCH ×2 (08:20→21:00)
[2021-02-08] MEDS: CITALOPRAM HYDROBROMIDE 20 MG TAB PO SCH (08:21)
[2021-02-08] MEDS: CYANOCOBALAMIN 500 MCG TAB PO SCH (08:21)
[2021-02-08] MEDS: MULTIVITAMINS, THERA 1 EACH TAB PO SCH (08:21)
[2021-02-08] MEDS: TOPIRAMATE 100 MG TAB PO SCH ×2 (08:21→21:13)
[2021-02-08] MEDS: LORATADINE 10 MG TAB PO SCH (08:21)
[2021-02-08] MEDS: PANTOPRAZOLE 40 MG TABLET PO SCH (08:21)
[2021-02-08] MEDS: PRAMIPEXOLE 0.5 MG TAB PO SCH ×2 (08:23→20:57)
[2021-02-08] MEDS: lisinopriL 10 MG TAB PO SCH (08:24)
[2021-02-08] MEDS: CALCIUM CARBONATE 500 MG CHEWABLE PO SCH (08:24)
[2021-02-08] MEDS: atenoloL 25 MG TAB PO SCH ×2 (08:24→21:02)
[2021-02-08 08:56] VITALS: RESP 16
[2021-02-08] MEDS: SYMBICORT 160-4.5 MCG INHALER INHALATION SCH ×2 (09:08→20:56)
--- NOTE | 2021-02-08 13:12 | P.PN ---
Progress Note - Text Progress Note Date: 02/08/21 Interval History: Patient was seen attending group and was directable and agreeable to speak with telegraphic typewriter installer in the office. Patient does express that she is feeling better. She is not endorsing any suicidal or homicidal ideation, intention, or plan. She does report that she had difficulty sleeping last night but states that overall this has improved from the night before. She is not reporting any racing thoughts, mood swings, or mood lability. She is currently not reporting any auditory or visualizations. She is denying any paranoia or other delusions. She has been adherent with the medications and does not report any significant side effects at this time. Collateral information was provided by the patient's mother reports that she has been increasing concerned with the patient's mental health as this is the first time that she has attempted suicide. After significant discussion with the mother, safety planning could occur including locking way of the patient's medications when she is to be discharged. Patient's mother was informed that we anticipate discharge tomorrow after the medication adjustment and Depakote level are completed. Mental Status Exam: General Appearance: Patient appears to be stated age is alert, directable, and cooperative. Fair hygiene and grooming. Behavior: Patient is calmly seated without any agitated behavior. Psychomotor slowing is evident. Eye contact is improving. Speech: Patient's speech is fluent and nonpressured. Monotone, nonspontaneous, low in volume. Mood/Affect: Mood is described as depressed. Affect is mood congruent and flat. Suicidality/Homicidality: Patient is currently denying any suicidal or homicid al ideation, intention, and/or plan. Perceptions: The patient is currently not endorsing any auditory or visual hallucinations. Though content/process: The patient does endorse some delusions of control. Thought process appears to be linear and this time. Memory and concentration: AOX3, grossly intact for the purposes of this session Judgment and insight: Fair Assessment Schizoaffective disorder, depressed type Plan: -Patient continues to meet criteria for inpatient psychiatric admission for symptom stabilization and safety. Patient has signed adult voluntary form. -Medications: Continue Depakote 750 mg by mouth twice a day for mood stabilization Continue citalopram 20 mg by mouth daily for depression/anxiety Continue Topamax 100 mg by mouth twice a day for mood stabilization Decrease Seroquel to 100 mg by mouth at bedtime as a cross titrate with Haldol Increase Haldol to 4 mg by mouth twice a day for psychosis Continue melatonin 5 mg by mouth at bedtime for insomnia -When necessary Ativan and Haldol for agitation/aggression. -NRT - nicotine patch -SW on board for discharge planning. Encouraged the patient to participate in milieu.
[2021-02-08] MEDS: MONTELUKAST 10 MG TAB PO SCH (21:00)
[2021-02-08] MEDS: polyethylene glycoL 3350 17 GM POWD.PACK PO SCH (21:00)
[2021-02-08] MEDS ORDERED: QUEtiapine 100 MG TAB PO SCH (21:00)
[2021-02-08] MEDS: MELATONIN 5 MG TABLET PO SCH (21:00)
[2021-02-09 06:37] VITALS: BP 98/55; PULSE 75; TEMP 97.5
[2021-02-09] MEDS: CALCIUM CARBONATE 500 MG CHEWABLE PO SCH (08:48)
[2021-02-09] MEDS: DIVALPROEX ER 250 MG TAB.ER.24H PO SCH (08:48)
[2021-02-09] MEDS: MULTIVITAMINS, THERA 1 EACH TAB PO SCH (08:48)
[2021-02-09] MEDS: PRAMIPEXOLE 0.5 MG TAB PO SCH (08:48)
[2021-02-09] MEDS: TOPIRAMATE 100 MG TAB PO SCH (08:48)
[2021-02-09] MEDS: haloperidoL 1 MG TAB PO SCH (08:48)
[2021-02-09] MEDS: LORATADINE 10 MG TAB PO SCH (08:49)
[2021-02-09] MEDS: CYANOCOBALAMIN 500 MCG TAB PO SCH (08:49)
[2021-02-09] MEDS: PANTOPRAZOLE 40 MG TABLET PO SCH (08:49)
[2021-02-09] MEDS: CITALOPRAM HYDROBROMIDE 20 MG TAB PO SCH (08:49)
[2021-02-09] MEDS: SYMBICORT 160-4.5 MCG INHALER INHALATION SCH (08:49)
[2021-02-09] MEDS: atenoloL 25 MG TAB PO SCH (08:52)
[2021-02-09] MEDS: lisinopriL 10 MG TAB PO SCH (08:52)
--- NOTE | 2021-02-09 11:06 | P.DS ---
Providers Date of admission: 02/02/21 23:28 Expected date of discharge: 02/09/21 Attending physician: Bernardo Kingsley MD Consults: 02/03/21 00:01 Consult Physician Routine Consulting Provider: Marvin Walton Consult Reason/Comments: history and physical/medical management Do you want consulting provider notified?: Yes Primary care physician: Marian Avitia - Discharge Diagnosis(es) (1) Schizoaffective disorder, depressive type Current Visit: Yes Status: Acute Priority: High Hospital Course: Admission HPI: Initial psychiatric evaluation was completed by Dr. Santos on 02/03/2021 who wrote: "The patient is a 50-year-old female. She presented to the ED for evaluation. The patient was depressed. She had suicidal thinking and hallucinations. She took extra medication in the last 2 days. The patient was a primary source of information. She was near mute and it was difficult to get even basic information the patient. She did not provide any information about her living circumstances or any issues relating to her coming to the hospital. She had 1 past psychiatric early 1999. She is followed by Dr. Mccoy. Psychotropic medications that were listed include Seroquel 200 mg in the morning, 300 mg at noon, and 300 mg at bedtime; Depakote 500 mg twice a day, Celexa 20 mg a day, and Xanax are 0.5 mg twice a day when necessary. Patient was unclear as to whether or not she had been taking her medications consistently at home. She indicated that she has had a diagnosis of bipolar disorder. She gives some vague ideas about episodes of suzanne that she might have had. She seemed to suggest that her mood would go up and that she gets energized and this can go on for 2-3 days. She also noted episodes of depression. She is not very clear as to whether the apparent manic episodes can turn into depression. Her ports no history of substance abuse issues. Her drug screen was negative. Depakote level was 46.3, which generally would be congruent with her current dose of 1000 g a day. She is not able to provide any information about other medication she might of been on trying different points in the past. She does not give information as to whether she feels the current medicine she is on have been beneficial. The main issue she presented with was that she is having voices. She has voices talking to her. She has command type hallucinations with voices telling her to do things such as talk to her mother. Also, the voices tell her to hurt herself. It is noted that early in the day, she was found in her room with a pillowcase tied fairly tightly around her neck. She said the voices are telling her to harm herself in this way. She is based on one-to-one. She did not identify any problems or difficulties with her psychotropic medications. She is admitted for further evaluation. Hospital course: Upon admission to the unit patient was initially presented as significantly withdrawn and responding to internal stimuli. The patient was restarted on her home medication regimen with Depakote being increased to 750 mg by mouth twice a day. Patient was also evaluated by the medical team for history and physical examination. The patient continued to endorse significant symptoms of depression and psychosis and appeared to be more bothered by the command type hallucinations. Haldol was added to her regimen to address her target symptoms of psychosis. Seroquel was gradually titrated down his Haldol was titrated upwards. Over the course the hospitalization, the patient was more cooperative in the psychiatric interview. The patient was adherent with her medications and tolerated them well. The patient displayed gradual improvement in regards her mood, psychosis, and participation in individual and milieu activities. Her Seroquel was tapered to a final dose of 100 at bedtime on her Haldol was incr eased to a final dose of 4 mg by mouth twice daily for psychosis. The patient was also continued on her citalopram, Depakote, and Topamax. Depakote level was obtained and was determined to be 73.5 on 02/09/2021. On the day of discharge, the patient is not reporting any suicidal or homicidal ideation, intention, and/or plan. She is not reporting any auditory or visual hallucinations. She denies any paranoia or other delusions. The patient was a strong desire to live for herself and for her family. This provider also discussed safety planning with the patient's mother who states that she will lock up and supervised medications. The patient denies any access to firearms or other weapons. The patient does not have a significant history of substance abuse and was counseled on abstaining from all substances including alcohol and marijuana. The patient was counseled on the medications and need for regular compliance was encouraged to follow-up with her outpatient appointments with mental health and for primary care. Prior to discharge, family meeting will be arranged by medical social worker to answer any questions and ensure safety. Mental status exam: General Appearance: Patient appears to be stated age is alert, pleasant, and cooperative. Patient is in no acute distress and has fair hygiene and grooming Behavior: Patient is calmly seated without any agitated behavior. Psychomotor activity appears normal today. Fair eye contact. Speech: Patient's speech is fluent and nonpressured. Monotone, nonspontaneous, low in volume. Mood/Affect: Patient reports their mood is "much better", affect is congruent and euthymic. Suicidality/Homicidality: Patient denies having any suicidal or homicidal ideation intent or plan. Perceptions: Patient denies any auditory or visual hallucinations. Though content/process: There is no evidence of any delusional thought content and thought process is linear and goal-directed. Patient is future oriented. Memory and concentration: AOX3, grossly intact for the purposes of this session. Can spell "WORLD" backwards correctly. Judgment and insight: Improved with guarded prognosis Impression: Schizophrenia disorder, depressive type Plan: -Continue with discharge today as patient has improved and stabilized psychiatrically and is not currently an imminent threat to herself and/or others. Or she will remain at chronically elevated risk of harm to self due to her prior attempts at suicide and the severity of her mental illness. She has a very supportive family and is motivated in treatment has protective factors. -Continue medications: Depakote 750 mg by mouth twice a day for mood stabilization Citalopram 20 mg by mouth daily for depression/anxiety Topamax 100 mg by mouth twice a day for roughly pleasing mood stabilization Seroquel 100 mg by mouth at bedtime for insomnia Haldol 4 mg by mouth twice a day for psychosis. The patient is on to psychotic therapy, and is recommended that Seroquel be gradually tapered off her regimen so that she may be on Haldol monotherapy to decrease risk for adverse effects and metabolic syndrome. -Patient was counseled on the need for medication compliance and appropriate follow-up at mental health and also primary care for medical issues. Patient verbalized understanding and agreed. -Social work to arrange for and conduct family meeting to ensure safety upon discharge and answer any questions/concerns. Social work also to arrange for patients follow up appointments with Dr Mccoy for psychiatric care along with follow up with primary care provider. -Patient counseled on abstaining from recreational drugs and marijuana and alcohol. Was informed/educated on the adverse effects on their physical and mental health. Patient verbally agreed and understood. -Patient was instructed to return to the hospital or seek immediate medical care if their psychiatric or medical symptoms do worsen or reoccur. -Psychoeducation and supportive therapy provided to patient. Risks and benefits of pharmacological treatment versus the risks and benefits of nontreatment weight and discussed. Informed consent discussion held. Common side effects of psychotropics discussed such as, but not limited to headache, GI disturbance, sexual dysfunction, movement disorders, sedation, and orthostatic hypotension. Life threatening and blackbox warnings of prescribed medications also discussed. Potential risks of operating a vehicle or heavy machinery discussed with patient at length. Advised on importance of compliance and a reliable and responsible manner. Patient advised to review FDA consumer labeling of all medications prior to taking. Patient verbalized understanding of potential risks, and agrees with current treatment plan. Patient advised to medically contact physician/emergency personnel if any acute changes in condition occur. Allergies Allergy/AdvReac Type Severity Reaction Status Date / Time No Known Allergies Allergy Verified 02/02/21 14:06 Laboratory Results WBC 6.9 k/uL (3.8-10.6) 02/04/21 06:21 RBC 4.03 m/uL (3.80-5.40) 02/04/21 06:21 Hgb 13.7 gm/dL (11.4-16.0) 02/04/21 06:21 Hct 40.5 % (34.0-46.0) 02/04/21 06:21 MCV 100.5 fL (80.0-100.0) H 02/04/21 06:21 MCH 33.9 pg (25.0-35.0) 02/04/21 06:21 MCHC 33.7 g/dL (31.0-37.0) 02/04/21 06:21 RDW 13.7 % (11.5-15.5) 02/04/21 06:21 Plt Count 236 k/uL (150-450) 02/04/21 06:21 MPV 7.6 02/04/21 06:21 Neutrophils % 45 % 02/04/21 06:21 Lymphocytes % 40 % 02/04/21 06:21 Monocytes % 8 % 02/04/21 06:21 Eosinophils % 2 % 02/04/21 06:21 Basophils % 1 % 02/04/21 06:21 Neutrophils # 3.1 k/uL (1.3-7.7) 02/04/21 06:21 Lymphocytes # 2.7 k/uL (1.0-4.8) 02/04/21 06:21 Monocytes # 0.6 k/uL (0-1.0) 02/04/21 06:21 Eosinophils # 0.1 k/uL (0-0.7) 02/04/21 06:21 Basophils # 0.1 k/uL (0-0.2) 02/04/21 06:21 Macrocytosis Slight 02/04/21 06:21 Sodium 140 mmol/L (137-145) 02/04/21 06:21 Potassium 4.1 mmol/L (3.5-5.1) 02/04/21 06:21 Chloride 111 mmol/L (98-107) H 02/04/21 06:21 Carbon Dioxide 23 mmol/L (22-30) 02/04/21 06:21 Anion Gap 6 mmol/L 02/04/21 06:21 BUN 18 mg/dL (7-17) H 02/04/21 06:21 Creatinine 0.97 mg/dL (0.52-1.04) 02/04/21 06:21 Est GFR (CKD-EPI)AfAm 80 (>60 ml/min/1.73 sqM) 02/04/21 06:21 Est GFR (CKD-EPI)NonAf 70 (>60 ml/min/1.73 sqM) 02/04/21 06:21 Glucose 84 mg/dL (74-99) 02/04/21 06:[address] Glu mg/dL 103 02/03/21 06:22 Hemoglobin A1c 5.2 % (4.0-6.0) 02/03/21 06:22 Calcium 8.6 mg/dL (8.4-10.2) 02/04/21 06:21 Total Bilirubin 0.4 mg/dL (0.2-1.3) 02/04/21 06:21 AST 32 U/L (14-36) 02/04/21 06:21 ALT 26 U/L (4-34) 02/04/21 06:21 Alkaline Phosphatase 50 U/L (38-126) 02/04/21 06:21 Total Protein 5.6 g/dL (6.3-8.2) L 02/04/21 06:21 Albumin 3.1 g/dL (3.5-5.0) L 02/04/21 06:21 Triglycerides 114 mg/dL (<150) 02/04/21 06:21 Cholesterol 170 mg/dL (<200) 02/04/21 06:21 LDL Cholesterol, Calc 107 mg/dL (0-99) H 02/04/21 06:21 HDL Cholesterol 40 mg/dL (40-60) 02/04/21 06:21 TSH 1.050 mIU/L (0.465-4.680) 02/04/21 06:21 Urine Opiates Screen Not Detected (NotDetected) 02/02/21 12:33 Ur Oxycodone Screen Not Detected (NotDetected) 02/02/21 12:33 Urine Methadone Screen Not Detected (NotDetected) 02/02/21 12:33 Ur Propoxyphene Screen Not Detected (NotDetected) 02/02/21 12:33 Ur Barbiturates Screen Not Detected (NotDetected) 02/02/21 12:33 Valproic Acid 73.5 ug/mL 02/09/21 07:42 U Tricyclic Antidepress Detected (NotDetected) H 02/02/21 12:33 Ur Phencyclidine Scrn Not Detected (NotDetected) 02/02/21 12:33 Ur Amphetamines Screen Not Detected (NotDetected) 02/02/21 12:33 U Methamphetamines Scrn Not Detected (NotDetected) 02/02/21 12:33 U Benzodiazepines Scrn Not Detected (NotDetected) 02/02/21 12:33 Urine Cocaine Screen Not Detected (NotDetected) 02/02/21 12:33 U Marijuana (THC) Screen Not Detected (NotDetected) 02/02/21 12:33 Coronavirus (PCR) Not Detected (Not Detectd) 02/02/21 22:07 Vital Signs Temp 97.5 F L 02/09/21 06:36 Pulse 75 05/13/21 06:36 Resp 16 02/09/21 06:36 BP 98/55 02/09/21 06:36 Pulse Ox 97 02/08/21 08:00 Patient Condition at Discharge: Stable Plan - Discharge Summary Discharge Rx Participant: No New Discharge Prescriptions: New Melatonin 5 mg PO HS 30 Days tablet haloperidoL [Haldol] 4 mg PO BID 30 Days tab QUEtiapine [SEROquel] 100 mg PO HS 30 Days tab Citalopram Hydrobromide [CeleXA] 20 mg PO DAILY 30 Days tab Divalproex ER [Depakote ER] 750 mg PO BID 30 Days tab.er.24h Topiramate [Topamax] 100 mg PO BID 30 Days tab Continue atenoloL [Atenolol] 25 mg PO BID Enalapril [Vasotec] 5 mg PO DAILY Cyanocobalamin (Vitamin B-12) [Vitamin B-12] 1,000 mcg PO DAILY Pantoprazole Sodium [Protonix] 20 mg PO BID Meclizine [Antivert] 25 mg PO Q8H PRN PRN Reason: DIZZINESS Loratadine [Claritin] 10 mg PO DAILY Albuterol Sulfate [Ventolin HFA] 2 puff INHALATION RT-Q6H PRN PRN Reason: Shortness Of Breath Calcium Carbonate [Calcium] 600 mg PO DAILY Budesonide/Formoterol Fumarate [Symbicort 160-4.5 Mcg Inhaler] 2 puff INHALATION RT-BID Multivitamins, Thera [Multivitamin (formulary)] 1 tab PO DAILY Dicyclomine [Bentyl] 20 mg PO BID PRN PRN Reason: CRAMPS Montelukast [Singulair] 10 mg PO HS Pramipexole [Mirapex] 0.5 mg PO BID ALPRAZolam [Xanax] 0.5 mg PO BID PRN PRN Reason: Anxiety Ibuprofen [Motrin] 600 mg PO Q8HR PRN PRN Reason: Pain Or Fever > 100.5 Polyethylene Glycol 3350 [Miralax] 17 gm PO HS Discontinued QUEtiapine [SEROquel] 200 mg PO DAILY Topiramate [Topamax] 100 mg PO BID QUEtiapine FUMARATE [SEROquel] 300 mg PO BID@1200,2100 Divalproex ER [Depakote ER] 500 mg PO BID Citalopram Hydrobromide [CeleXA] 20 mg PO DAILY Discharge Medication List ALPRAZolam [Xanax] 0.5 mg PO BID PRN 02/02/21 [History] Albuterol Sulfate [Ventolin HFA] 2 puff INHALATION RT-Q6H PRN 02/02/21 [History] Budesonide/Formoterol Fumarate [Symbicort 160-4.5 Mcg Inhaler] 2 puff INHALATION RT-BID 02/02/21 [History] Calcium Carbonate [Calcium] 600 mg PO DAILY 02/02/21 [History] Cyanocobalamin (Vitamin B-12) [Vitamin B-12] 1,000 mcg PO DAILY 02/02/21 [History] Dicyclomine [Bentyl] 20 mg PO BID PRN 02/02/21 [History] Enalapril [Vasotec] 5 mg PO DAILY 02/02/21 [History] Ibuprofen [Motrin] 600 mg PO Q8HR PRN 02/02/21 [History] Loratadine [Claritin] 10 mg PO DAILY 02/02/21 [History] Meclizine [Antivert] 25 mg PO Q8H PRN 02/02/21 [History] Montelukast [Singulair] 10 mg PO HS 02/02/21 [History] Multivitamins, Thera [Multivitamin (formulary)] 1 tab PO DAILY 02/02/21 [History] Pantoprazole Sodium [Protonix] 20 mg PO BID 02/02/21 [History] Polyethylene Glycol 3350 [Miralax] 17 gm PO HS 02/02/21 [History] Pramipexole [Mirapex] 0.5 mg PO BID 02/02/21 [History] atenoloL [Atenolol] 25 mg PO BID 02/02/21 [History] Citalopram Hydrobromide [CeleXA] 20 mg PO DAILY 30 Days tab 02/08/21 [Rx] Divalproex ER [Depakote ER] 750 mg PO BID 30 Days tab.er.24h 02/08/21 [Rx] Melatonin 5 mg PO HS 30 Days tablet 02/08/21 [Rx] Topiramate [Topamax] 100 mg PO BID 30 Days tab 02/08/21 [Rx] QUEtiapine [SEROquel] 100 mg PO HS 30 Days tab 02/09/21 [Rx] haloperidoL [Haldol] 4 mg PO BID 30 Days tab 02/09/21 [Rx] Follow up Appointment(s)/Referral(s): [facility] [Outside] - 02/16/21 11:00 am (Intake) Marian Avitia MD [Primary Care Provider] - 1-2 days Riccardo Mccoy MD [STAFF PHYSICIAN] - 02/21/21 11:30 am Patient Instructions/Handouts: Mood Disorders (DC), Hallucinations (DC), Suicide Prevention (DC) Activity/Diet/Wound Care/Special Instructions: Activity and diet as tolerated. Avoid the use of street drugs and alcohol. Take all medications as prescribed. When you are in need of refills on your medications please contact your medical provider and/or outpatient psychiatrist to have this done. Please go to scheduled outpatient appointment for aftercare treatment. If symptoms return or become worse, call the crisis line at and/or go to the nearest emergency room for evaluation. Discharge Disposition: HOME SELF-CARE
== END 2021-02-09 15:26 | disposition home or self-care (01) | DRG 885 ==
LOC: EC 12:01 → 3MHU 23:28
PROVIDERS: ADMIT Psychiatry & Neurology Psychiatry; ATTEND Psychiatry & Neurology Psychiatry
DX: F25.1 Schizoaffective disorder, depressive type (principal); R45.851 Suicidal ideations; F41.9 Anxiety disorder, unspecified; G47.00 Insomnia, unspecified; I10 Essential (primary) hypertension; J45.909 Unspecified asthma, uncomplicated; Z79.51 Long term (current) use of inhaled steroids; Z79.899 Other long term (current) drug therapy; Z87.891 Personal history of nicotine dependence; Z20.822 Contact with and (suspected) exposure to COVID-19; Z98.890 Other specified postprocedural states
CPT/HCPCS: 80053; 80061; 80164; 80306; 82075; 83036; 84443; 85025; 87635; 99285

== ENCOUNTER → 2021-03-07 | Outpatient (CLI) | payer MEDICARE, MEDICAID ==
[2021-03-07 19:13] LABS: HCT 44.4 % (37.2-46.3); HGB 14.4 g/dL (12.0-15.0); MCH 32.9 pg (27.0-32.0); MCHC 32.4 g/dL (32.0-37.0); MCV 101.4 fL (80.0-97.0); Mean Platelet Volume 11.6 fL (9.5-12.2); Platelet Count 223 X 10*3/uL (140-440); RBC 4.38 X 10*6/uL (4.10-5.20); RDW 13.2 % (11.5-14.5); WBC 5.84 X 10*3/uL (4.50-10.00)
[2021-03-07 22:49] LABS: Valproic Acid (Depakene) 87.3 ug/mL (50.0-100.0)
[2021-03-08 00:26] LABS: ALT 28 U/L (8-44); AST 22 U/L (13-35); Albumin/Globulin Ratio 1.95 (1.60-3.17); Alkaline Phosphatase 60 U/L (41-126); Bilirubin, Conjugated <0.20 mg/dL (0.20-0.40); Total Bilirubin 0.3 mg/dL (0.2-1.2); Total Protein 5.9 g/dL (6.2-8.2)
== END | disposition home or self-care (01) ==
LOC: LABWHC1 10:53
PROVIDERS: ATTEND Psychiatry & Neurology Psychiatry
DX: F31.60 Bipolar disorder, current episode mixed, unspecified (principal); Z79.899 Other long term (current) drug therapy
CPT/HCPCS: 36415; 80076; 80164; 85027

== ENCOUNTER → 2021-04-10 | Outpatient (CLI) | payer MEDICARE, MEDICAID ==
[2021-04-10 14:40] LABS: HCT 45.5 % (37.2-46.3); HGB 14.3 g/dL (12.0-15.0); MCH 32.5 pg (27.0-32.0); MCHC 31.4 g/dL (32.0-37.0); MCV 103.4 fL (80.0-97.0); Mean Platelet Volume 10.9 fL (9.5-12.2); Platelet Count 221 X 10*3/uL (140-440); RDW 12.1 % (11.5-14.5); WBC 9.98 X 10*3/uL (4.50-10.00)
[2021-04-10 14:50] LABS: Valproic Acid (Depakene) 92.6 ug/mL (50.0-100.0)
[2021-04-10 14:51] LABS: Albumin 3.9 g/dL (3.80-4.90); Albumin/Globulin Ratio 1.95 (1.60-3.17); Anion Gap 7.3 mmol/L (4.00-12.00); BUN/Creat Ratio 17.5 Ratio (12.00-20.00); Calcium 8.8 mg/dL (8.7-10.3); Carbon Dioxide 27.7 mmol/L (21.6-31.8); Chol/HDL Ratio 3.6; LDL Cholesterol,Calculated 97.8 mg/dL (0.0-131.0); Non-African American GFR(CKD) 87.2 (60.0-200.0); Potassium 4.6 mmol/L (3.5-5.5); Total Bilirubin 0.3 mg/dL (0.2-1.2); Total Protein 5.9 g/dL (6.2-8.2); VLDL Calculation 19.2 mg/dL (5.00-40.00)
== END | disposition home or self-care (01) ==
LOC: LABWHC1 09:45
PROVIDERS: ATTEND Psychiatry & Neurology Psychiatry
DX: F31.60 Bipolar disorder, current episode mixed, unspecified (principal); Z79.899 Other long term (current) drug therapy
CPT/HCPCS: 36415; 80053; 80061; 80164; 85027

== ENCOUNTER → 2021-06-08 | Outpatient (CLI) | payer MEDICARE, OTHER ==
[2021-06-08 21:50] LABS: HGB 14.2 g/dL (12.0-15.0); MCH 32.7 pg (27.0-32.0); MCHC 32.3 g/dL (32.0-37.0); MCV 101.4 fL (80.0-97.0); Mean Platelet Volume 11.2 fL (9.5-12.2); Platelet Count 234 X 10*3/uL (140-440); RBC 4.34 X 10*6/uL (4.10-5.20); RDW 12.1 % (11.5-14.5)
[2021-06-09 00:52] LABS: Valproic Acid (Depakene) 78.4 ug/mL (50.0-100.0)
[2021-06-09 00:53] LABS: African American GFR (CKD) 87.6 (60.0-200.0); Albumin 3.9 g/dL (3.80-4.90); Albumin/Globulin Ratio 1.86 (1.60-3.17); BUN/Creat Ratio 17.78 Ratio (12.00-20.00); Calcium 9.6 mg/dL (8.7-10.3); Globulin 2.1 g/dL (1.6-3.3); Non-African American GFR(CKD) 75.6 (60.0-200.0); Total Bilirubin 0.4 mg/dL (0.2-1.2)
== END | disposition home or self-care (01) ==
LOC: LABWHC1 10:55
PROVIDERS: ATTEND Psychiatry & Neurology Psychiatry
DX: F31.60 Bipolar disorder, current episode mixed, unspecified (principal); Z79.899 Other long term (current) drug therapy
CPT/HCPCS: 36415; 80053; 80164; 85027

== ENCOUNTER → 2021-06-08 | Outpatient (CLI) | payer MEDICARE, OTHER ==
[~2021-06-08] MED LIST: IODINE/POTASS IOD (LUGOLS) BOTTLE TOPICAL ONE
--- NOTE | 2021-06-09 08:21 | NM ---
EXAMINATION TYPE: NM DatScan Brain SPECT DATE OF EXAM: 06/08/2021 COMPARISON: NONE HISTORY: Tremors TECHNIQUE: 10 drops of Lugol's solution was administered 1 hour prior to injection as a thyroid bloc mckenzie agent. After the administration of 4.55 mCi I-123 Ioflupane DaTscan. Images obtained 3 hours p ost injection. SPECT images of the brain were acquired with axial and coronal reconstructions. FINDINGS: The axial SPECT images demonstrate increased background activity and symmetric activity wit hin the bilateral striata. IMPRESSION: Symmetric uptake bilaterally with no diagnostic evidence of Parkinsonian syndrome or Park inson's disease.
== END | disposition home or self-care (01) ==
LOC: RADNMMAIN 10:20
PROVIDERS: ATTEND Psychiatry & Neurology Neurology
DX: R25.1 Tremor, unspecified (principal)
CPT/HCPCS: 78803; A9584

== ENCOUNTER → 2021-07-07 | Outpatient (CLI) | payer MEDICARE, OTHER ==
--- NOTE | 2021-07-10 14:00 | CT ---
EXAMINATION TYPE: CT abdomen pelvis wo con DATE OF EXAM: 07/07/2021 COMPARISON: CT chest 01/01/2011 HISTORY: 50-year-old female N30.20, abdominal pain, chronic cystitis. CT DLP: 451.7 mGycm. Automated exposure control for dose reduction was used. TECHNIQUE: Contiguous axial scanning of the abdomen and pelvis without IV contrast. Coronal and sagit carlene reconstructions performed. FINDINGS: Heart normal size without pericardial effusion. Scattered subpleural interstitial changes in the visu alized lower lungs. There is also a 6 mm posterior left basilar pulmonary nodule which is unchanged f rom 2011. No pleural effusion. Noncontrast appearance of the liver, gallbladder, adrenal glands, and pancreas show no gross abnormal ity. Solitary calcified granuloma within the spleen. 5 mm nonobstructive right renal calculus. 4 mm nonobstructive left renal calculus. In addition, there is an 8 mm subtle cortical hypodensity po sterior upper pole left kidney not clearly seen on the 2011 exam. This could represent a small cyst. No dilated small bowel, free fluid, or free air. Normal appendix. Some gassy distention of the colon along with scattered mild to moderate stool. No pericolonic inflammatory change. Mildly redundant sigmoid colon. Bladder is urine distended. Uterus is visualized as are both ovaries. Pelvic phlebolith. No abnormal fluid collection in the pelvis or pelvic lymphadenopathy seen. Bones: Generator device along the anterior left lower quadrant and also left posterior lower back. Sp inal stimulator array leads extending up in the thoracic spinal canal beyond the [id number]. Facet arthropathy lower lumbar spine. Mild degenerative changes right hip. IMPRESSION: 1. Partially visualized interstitial fibrosis in the lower lungs. Correlate for any known diagnosis. Pulmonary medicine referral if no established diagnosis and if the patient is symptomatic. 2. Bilateral nonobstructive renal calculi measuring up to 5 mm. No hydronephrosis. 3. Subtle 8 mm cortical hypodensity posterior upper pole left kidney too small for accurate characte rization, probably a small cortical cyst, new from 2010. Six-month follow-up ultrasound recommended t o reassess. If not visualized by ultrasound, follow-up contrast enhanced CT may be needed. 4. Some gaseous distention of the colon with scattered mild to moderate stool.
== END | disposition home or self-care (01) ==
LOC: RADCTMAIN 14:17
PROVIDERS: ATTEND Urology
DX: N20.0 Calculus of kidney (principal); K63.89 Other specified diseases of intestine
CPT/HCPCS: 74176

== ENCOUNTER → 2021-08-18 | Outpatient (CLI) | payer MEDICARE, OTHER ==
--- NOTE | 2021-08-18 12:20 | XR ---
KUB HISTORY: N20.0 L AND R Frontal KUB and T2 images correlated to CT scan 07/07/2021 There is a stimulator overlying the left paraspinal location, leads are coursing into the thoracic sp ine level, there are overlying artifacts. There is also a generator in the left lower quadrant. Small bilateral renal calcifications seen on CT are likely obscured on the left but noted on the right at the level the lower pole measuring approximately 4 mm. Phleboliths are noted in the pelvis. Lung base s are clear. No evident bowel obstruction or pneumoperitoneum. impression: Nephrolithiasis.
[2021-08-18 15:37] LABS: HGB 15.3 g/dL (12.0-15.0); MCH 33.6 pg (27.0-32.0); MCHC 33.3 g/dL (32.0-37.0); MCV 100.9 fL (80.0-97.0); Mean Platelet Volume 11.4 fL (9.5-12.2); Platelet Count 232 X 10*3/uL (140-440); RBC 4.56 X 10*6/uL (4.10-5.20); RDW 12.1 % (11.5-14.5)
[2021-08-18 18:32] LABS: ALT 11 U/L (8-44); AST 11 U/L (13-35); African American GFR (CKD) 98.4 (60.0-200.0); Albumin 4.1 g/dL (3.8-4.9); Alkaline Phosphatase 64 U/L (41-126); BUN/Creat Ratio 29.22 Ratio (12.00-20.00); Bilirubin, Conjugated <0.20 mg/dL (0.20-0.40); Blood Urea Nitrogen 23.9 mg/dL (9.0-27.0); Calcium 9.3 mg/dL (8.7-10.3); Carbon Dioxide 24.9 mmol/L (21.6-31.8); Chloride 106 mmol/L (96-109); Globulin 2.1 g/dL (1.6-3.3); Glucose 91 mg/dL (70-110); LDL Cholesterol,Calculated 128.2 mg/dL (0.0-131.0); Non-African American GFR(CKD) 84.9 (60.0-200.0); Sodium 141 mmol/L (135-145); Total Protein 6.2 g/dL (6.2-8.2); VLDL Calculation 17.32 mg/dL (5.00-40.00)
[2021-08-18 22:04] LABS: Valproic Acid (Depakene) 56.8 ug/mL (50.0-100.0)
== END | disposition home or self-care (01) ==
LOC: LABWHC1 09:57
PROVIDERS: ATTEND Urology
DX: N20.0 Calculus of kidney (principal); F31.60 Bipolar disorder, current episode mixed, unspecified; Z79.899 Other long term (current) drug therapy
CPT/HCPCS: 36415; 74018; 80048; 80061; 80076; 80164; 85027

== ENCOUNTER → 2021-09-15 | Outpatient (CLI) | payer MEDICARE, OTHER ==
--- NOTE | 2021-09-18 09:13 | MM ---
Reason for exam: screening (asymptomatic). Last mammogram was performed 1 year and 1 month ago. History: Patient is nulliparous. Taking hormonal contraceptives for 25 years beginning at age 23. Physical Findings: A clinical breast exam by your physician is recommended on an annual basis and results should be correlated with mammographic findings. MG 3D Screening Mammo W/Cad Bilateral CC and MLO view(s) were taken. Prior study comparison: August 11, 2020, bilateral MG 3d screening mammo w/cad. November 20, 2019, right breast MG 3d diag mammo w/cad RT. The breast tissue is heterogeneously dense. This may lower the sensitivity of mammography. There are benign appearing round calcifications bilaterally. There is no discrete abnormality. ASSESSMENT: Benign, BI-RAD 2 RECOMMENDATION: Routine screening mammogram of both breasts in 1 year.
== END | disposition home or self-care (01) ==
LOC: RADMAMWWP 07:59
PROVIDERS: ATTEND Internal Medicine
DX: Z12.31 Encounter for screening mammogram for malignant neoplasm of breast (principal)
CPT/HCPCS: 77063; 77067

== ENCOUNTER → 2021-09-21 | Outpatient (CLI) | payer MEDICARE, OTHER ==
[2021-09-21 10:57] LABS: Basophils % (A) 0 %; Eosinophils # (A) 0.1 k/uL (0-0.7); Eosinophils % (A) 1 %; HGB 15.1 gm/dL (11.4-16.0); Lymphocytes % (A) 21 %; MCHC 32.2 g/dL (31.0-37.0); MCV 102.5 fL (80.0-100.0); Macrocytosis Slight; Mean Platelet Volume 7.7; Monocytes # (A) 0.6 k/uL (0-1.0); Monocytes % (A) 6 %; Neutrophils # (A) 6.5 k/uL (1.3-7.7); Neutrophils % (A) 69 %; Platelet Count 238 k/uL (150-450); RBC 4.59 m/uL (3.80-5.40); RDW 12.4 % (11.5-15.5); WBC 9.4 k/uL (3.8-10.6)
[2021-09-21 12:02] LABS: Calcium 9.4 mg/dL (8.4-10.2); Potassium 4.8 mmol/L (3.5-5.1)
== END | disposition home or self-care (01) ==
LOC: LABPAT 10:16
PROVIDERS: ATTEND Urology
DX: Z01.812 Encounter for preprocedural laboratory examination (principal); N20.0 Calculus of kidney
CPT/HCPCS: 36415; 80048; 85025; 87086

== ENCOUNTER 2021-09-28 05:57 | Day surgery (SDC) | payer MEDICARE, OTHER ==
[2021-09-26 09:59] VITALS: BMI 31.5
--- NOTE | 2021-09-27 17:01 | P.GSHP ---
History of Present Illness H&P Date: 09/27/21 Chief Complaint: Recurrent UTI The patient is a 50-year-old white female who experienced urinary incontinence in early 2020. Since November 2020, she has been treated for recurrent pansensitive E. coli UTIs. She has experienced urinary urge incontinence, which improves with treatment of her UTI. CT scan shows a 5 mm lower pole renal calculus bilaterally. She has been treated with antibiotic courses up to 30 day duration, only to have the UTI recur upon completion of antibiotics. The patient and her mother were made aware of the fact that the calculi may be infected, and she has thus elected to undergo ureteroscopic removal of the renal calculi. - Constitutional Constitutional: Denies chills, Denies fever - Genitourinary (Female) Genitourinary: Denies dysuria, Denies hematuria Past Medical History Past Medical History: Asthma, Fibromyalgia, GERD/Reflux, Musculoskeletal Disorder, Pneumonia Additional Past Medical History / Comment(s): migraines, frequent UTI's, hx ulcer, hx hiatal hernia, constipation, kidney stones, cerebral palsy History of Any Multi-Drug Resistant Organisms: None Reported Past Surgical History: Hernia Repair Additional Past Surgical History / Comment(s): esophageal sleeve(for severe reflux) with hiatal hernia repair, pain pump and spinal stimulator Past Anesthesia/Blood Transfusion Reactions: No Reported Reaction Additional Past Anesthesia/Blood Transfusion Reaction / Comment(s): no diff with intubation per mother Smoking Status: Never smoker - Past Family History Father Family Medical History: Cancer Medications and Allergies Home Medications Medication Instructions Recorded Confirmed Type Albuterol Sulfate [Ventolin HFA] 2 puff INHALATION RT-Q6H PRN 02/02/21 09/26/21 History Budesonide/Formoterol Fumarate 2 puff INHALATION RT-BID 02/02/21 09/26/21 History [Symbicort 160-4.5 Mcg Inhaler] Calcium Carbonate [Calcium] 600 mg PO BID 02/02/21 09/26/21 History Cyanocobalamin (Vitamin B-12) 1,000 mcg PO DAILY 02/02/21 09/26/21 History [Vitamin B-12] Loratadine [Claritin] 10 mg PO DAILY 02/02/21 09/26/21 History Meclizine [Antivert] 25 mg PO Q8H PRN 02/02/21 09/26/21 History Montelukast [Singulair] 10 mg PO HS 02/02/21 09/26/21 History Multivitamins, Thera [Multivitamin 1 tab PO DAILY 02/02/21 09/26/21 History (formulary)] Pantoprazole Sodium [Protonix] 20 mg PO BID 02/02/21 09/26/21 History Polyethylene Glycol 3350 [Miralax] 17 gm PO HS PRN 02/02/21 09/26/21 History Pramipexole [Mirapex] 0.5 mg PO BID 02/02/21 09/26/21 History Citalopram Hydrobromide [CeleXA] 20 mg PO DAILY 30 Days tab 02/08/21 09/26/21 Rx Melatonin 5 mg PO HS 30 Days tablet 02/08/21 09/26/21 Rx Divalproex ER [Depakote ER] 750 mg PO BID 09/26/21 09/26/21 History Enalapril [Vasotec] 5 mg PO DAILY 09/26/21 09/26/21 History Nitrofurantoin Macrocrystal 100 mg PO BID 09/26/21 09/26/21 History [Nitrofurantoin] Oxybutynin Xl [Ditropan XL] 5 mg PO BID 09/26/21 09/26/21 History risperiDONE [RisperDAL] 1 mg PO HS 09/26/21 09/26/21 History Allergies Allergy/AdvReac Type Severity Reaction Status Date / Time No Known Allergies Allergy Verified 09/26/21 09:42 Surgical - Exam - General well developed, well nourished, no distress - Respiratory normal respiratory effort - Abdomen Abdomen: soft, non tender, no guarding, no rigid, no rebound - Psychiatric oriented to time, oriented to person, oriented to place, speech is normal, memory intact Results - Imaging CT scan - abdomen: report reviewed, image reviewed Assessment and Plan (1) Calculus of kidney Status: Acute Code(s): N20.0 - CALCULUS OF KIDNEY SNOMED Code(s): 11202438 Plan: Cystoscopy, bilateral ureteroscopy with Holmium laser lithotripsy and possible stone basketing, bilateral ureteral stent insertion. The procedure has been reviewed in detail with the patient and her mother. The rationale for the procedure has been discussed, as were potential risks which include anesthesia, bleeding, persistent infection, and ureteral injury. She has been taking Macrobid 100 mg twice a day since 09/07/2021 and will receive IV antibiotics perioperatively.
[~2021-09-28 05:57] MED LIST changes: +DEXAMETHASONE SOD PHOSPHATE 4 MG/ML 1 ML VIAL IV ONE; +GENTAMICIN 90 MG in SODIUM CHLORIDE 0.9% 100 ML IVPB PRN; +HYDROmorphone 0.5 MG/0.5 ML SYRINGE IVP PRN; -IODINE/POTASS IOD (LUGOLS) BOTTLE TOPICAL ONE; +LACTATED RINGERS 1,000 ML IV SCH; +ONDANSETRON 4 MG/2 ML VIAL IVP ONE
--- NOTE | 2021-09-28 07:24 | XR ---
EXAMINATION TYPE: XR KUB DATE OF EXAM: 09/28/2021 Comparison: 08/18/2021 Clinical History: 50 year-old female bilateral kidney stones Findings: Generator devices projecting over the left flank area nonobstructive bowel gas pattern. Gassy bowel l oops are present throughout. Prominent bowel content partially obscures the renal shadows. A 4 mm ligia culus right mid kidney is faintly visualized. Impression: Bowel content largely obscures the renal shadows. A 4 mm right renal calculus is faintly visualized.
[2021-09-28] MEDS ORDERED: KETOROLAC 15 MG/ML 1 ML VIAL ONE (07:36)
[2021-09-28] MEDS ORDERED: MIDAZOLAM 2 MG/2 ML VIAL ONE (07:36)
[2021-09-28] MEDS ORDERED: fentaNYL (PF) 50 MCG/ML 2 ML AMP ONE (07:36)
[2021-09-28] MEDS ORDERED: SUCCINYLCHOLINE CHLORIDE 100 MG/5 ML SYR IV ONE (07:36)
[2021-09-28] MEDS ORDERED: NEOSTIGMINE 1 MG/ML 10 ML VIAL ONE (07:36)
[2021-09-28] MEDS ORDERED: PHENYLEPHRINE-0.9% NACL SYG 1,000 MCG/10 ML SYRINGE ONE (07:36)
[2021-09-28] MEDS ORDERED: GLYCOPYRROLATE 0.2 MG/ML 2 ML VIAL ONE (07:36)
[2021-09-28] MEDS ORDERED: ROCURONIUM 10 MG/ML (5 ML VIAL) IV ONE (07:36)
[2021-09-28] MEDS ORDERED: PROPOFOL 10 MG/ML 20 ML VIAL IV ONE (07:36)
[2021-09-28] MEDS ORDERED: ePHEDrine 50 MG/ML 1 ML AMP ONE (07:36)
[2021-09-28] MEDS ORDERED: LIDOCAINE 1% INJ 10MG/ML (20 ML MDV) ONE (07:36)
[2021-09-28] MEDS ORDERED: IOPAMIDOL-370 50ML BTL MISCELLANE ONE (08:11)
[2021-09-28] MEDS ORDERED: LACTATED RINGERS 1,000 ML IV ONE (09:05)
--- NOTE | 2021-09-28 09:38 | FL ---
EXAMINATION TYPE: FL guidance operating room DATE OF EXAM: 09/28/2021 HISTORY: Fluoroscopy time 35 seconds of fluoroscopy provided. IMPRESSION: 1. Fluoroscopy time.
[2021-09-28 09:41] VITALS: TEMP 97.9
[2021-09-28 09:50] VITALS: RESP 16
--- NOTE | 2021-09-28 09:55 | P.OP ---
Date of Procedure: 09/28/21 Preoperative Diagnosis: Bilateral renal calculi Postoperative Diagnosis: Same Procedure(s) Performed: Cystoscopy, bilateral retrograde pyelograms, bilateral ureteroscopy with Holmium laser lithotripsy and stone basketing, bilateral ureteral stent insertion Anesthesia: SUNDAY Surgeon: Meño Keenan Estimated Blood Loss (ml): 5 IV fluids (ml): 800 Pathology: other (Calculus fragments, sent for chemical analysis) Condition: stable Disposition: PACU Indications for Procedure: The patient is a 50-year-old white female who experienced urinary incontinence in early 2020. Since November 2020, she has been treated for recurrent pansensitive E. coli UTIs. She has experienced urinary urge incontinence, which improves with treatment of her UTI. CT scan shows a 5 mm lower pole renal calculus bilaterally. She has been treated with antibiotic courses up to 30 day duration, only to have the UTI recur upon completion of antibiotics. The patient and her mother were made aware of the fact that the calculi may be infected, and she has thus elected to undergo ureteroscopic removal of the renal calculi. Operative Findings: Bilateral 5 mm renal calculi, both removed completely. Description of Procedure: The patient was taken to the operating room and placed in the dorsolithotomy position, with legs supported in Jordan stirrups. The external genitalia was prepped and draped sterilely. The 30 lens was used to introduce the 21-Honduran Stone cystoscopic sheath through the urethra and into the bladder under direct vision. The bladder was examined in its entirety. Both ureteral orifices were normal anatomic location and configuration, and clear urine effluxed from both. No tumors or foreign bodies were seen. Using a 10-Honduran cone-tipped catheter, bilateral retrograde pyelograms were performed. The course of each ureter appeared normal. No filling defects were seen. The renal pelvis appeared normal bilaterally. A 0.038 inch Glidewire was passed through the cystoscope. The left ureteral orifice was cannulated, and the Glidewire was advanced up to the renal pelvis. The cystoscope was removed, and an 11/13-Honduran ureteral access catheter was passed over the wire, up to the proximal ureter. The flexible ureteroscope was then passed through the ureteral access catheter sheath and advanced through the proximal ureter, up to the left renal pelvis. Each calyx was examined. A 5 mm calculus was identified within a mid pole calyx. The 272 micron Holmium laser probe was passed through the ureteroscope, and lithotripsy was performed. The calculus was broken into several fragments, each of which was removed using a 1.9-Honduran nitinol basket. All calculus fragments were removed. Pull out ureteroscopy was performed. There was no evidence of ureteral trauma. An identical procedure was then performed on the contralateral side. The right- sided calculus was located within an upper pole calyx and measured approximately 4 mm in size. Once both calculi were fragmented and removed completely, the cystoscope was replaced into the bladder and 24 cm, 4.8-Honduran double-J ureteral stents were placed bilaterally. Proper stent positioning was verified fluoroscopically and endoscopically. The bladder was emptied and the cystoscope removed. The patient tolerated the procedure well and was taken to the recovery room in stable condition. BRENDA NIX Report: Procedure Acuity: Elective Stone Size and Location: Bilateral mid pole calculi, 5 mm each Ureteral Dilation: No Ureteral Access Sheath Used: Yes Stone Sent for Analysis: Yes All Stones/Fragments Were Removed with a Basket: Yes Complications: No Preoperative Antibiotics Given: Yes Stent Placed: Yes If Stent Placed, Was String Left Attached: No If Stent Placed, When is it to be Removed: 1 week Discharge Medications: Toradol, tamsulosin, oxybutynin
[2021-09-28 10:29] VITALS: BP 100/66; PULSE 75
== END 2021-09-28 11:28 | disposition home or self-care (01) ==
LOC: OR 05:57
PROVIDERS: ATTEND Urology
DX: N20.0 Calculus of kidney (principal)
CPT/HCPCS: 52356; 81025; 82365; 74018; C2625; C1758; C1769; J2250; J1100; J2710; J0690; J2405; J2001; J3010; J1580; J1885; J2370; J0330; J2704; Q9967

== ENCOUNTER → 2021-12-04 | Outpatient (CLI) | payer MEDICARE, OTHER ==
--- NOTE | 2021-12-04 15:42 | US ---
EXAMINATION TYPE: US kidneys/renal and bladder DATE OF EXAM: 12/04/2021 COMPARISON: CT 07/07/2021 CLINICAL HISTORY: N20.0 CALCULUS OF KIDNEY. Calculus of right and left kidney per order. Pt states sh alejandro has had a procedure to remove her kidney stones in the past. EXAM MEASUREMENTS: Right Kidney: 10.1 x 5.8 x 4.4 cm Left Kidney: 9.6 x 4.7 x 4.8 cm Right Kidney: Hyperechoic focus seen lower pole 0.4 x 0.5 x 0.5 cm. Appearance of anechoic dilated lo wer collecting system. Left Kidney: Limited due to gas and rib shadow. Anechoic elongating appearance laterally, possible di lated collecting system? Bladder: Appears anechoic. Bilateral Jets seen: Yes Incidental finding: Hyperechoic focus seen within the spleen: 0.5 x 0.4 x 0.4 cm, possibly correlates with prior CT., Findings consistent with granuloma IMPRESSION: Some mild caliectasis noted lower pole the right kidney as noted on CT, nonobstructive calculus is pr esent at this level, caliectasis also noted lower pole left kidney, calculus not seen at this level a s noted on CT however.
== END | disposition home or self-care (01) ==
LOC: RADUSWWP 13:22
PROVIDERS: ATTEND Urology
DX: N20.0 Calculus of kidney (principal); N28.89 Other specified disorders of kidney and ureter
CPT/HCPCS: 76770

== ENCOUNTER → 2021-12-12 | Outpatient (CLI) | payer MEDICARE, OTHER ==
[2021-12-12 19:07] LABS: MCH 32.2 pg (27.0-32.0); MCHC 31.8 g/dL (32.0-37.0); MCV 101.1 fL (80.0-97.0); Mean Platelet Volume 10.7 fL (9.5-12.2); NRBC Per 100 WBC 0 /100 WBCS (0.0-0.0); Platelet Count 204 X 10*3/uL (140-440); RBC 4.35 X 10*6/uL (4.10-5.20); RDW 12.7 % (11.5-14.5); WBC 6.15 X 10*3/uL (4.50-10.00)
[2021-12-12 19:39] LABS: Valproic Acid (Depakene) 77.3 ug/mL (50.0-100.0)
[2021-12-12 21:40] LABS: African American GFR (CKD) 99.4 (60.0-200.0); Albumin 3.8 g/dL (3.8-4.9); Albumin/Globulin Ratio 1.7 (1.60-3.17); Anion Gap 12.4 mmol/L (10.00-18.00); BUN/Creat Ratio 20.47 Ratio (12.00-20.00); Blood Urea Nitrogen 16.6 mg/dL (9.0-27.0); Calcium 8.8 mg/dL (8.7-10.3); Carbon Dioxide 23.3 mmol/L (20.0-27.5); Globulin 2.3 g/dL (1.6-3.3); Non-African American GFR(CKD) 85.8 (60.0-200.0); Potassium 4.5 mmol/L (3.5-5.5); Total Bilirubin 0.3 mg/dL (0.30-1.20); Total Protein 6.1 g/dL (6.2-8.2)
== END | disposition home or self-care (01) ==
LOC: LABWHC1 10:03
PROVIDERS: ATTEND Psychiatry & Neurology Psychiatry
DX: F31.60 Bipolar disorder, current episode mixed, unspecified (principal); Z79.899 Other long term (current) drug therapy
CPT/HCPCS: 36415; 80053; 80164; 83036; 85027

== ENCOUNTER → 2022-08-20 | Outpatient (CLI) | payer MEDICARE, OTHER ==
[2022-08-20 18:54] LABS: Valproic Acid (Depakene) 57.4 ug/mL (50.0-100.0)
[2022-08-20 18:56] LABS: ALT 13 U/L (8-44); AST 13 U/L (13-35); Albumin/Globulin Ratio 2.21 (1.60-3.17); Alkaline Phosphatase 44 U/L (41-126); BUN/Creat Ratio 21.83 Ratio (12.00-20.00); Blood Urea Nitrogen 18.6 mg/dL (9.0-27.0); Calcium 9.1 mg/dL (8.7-10.3); Carbon Dioxide 26.2 mmol/L (20.0-27.5); Chloride 106 mmol/L (96-109); Chol/HDL Ratio 4.45 Ratio; Globulin 1.8 g/dL (1.6-3.3); Glucose 81 mg/dL (70-110); LDL Cholesterol,Calculated 127.8 mg/dL (0.0-131.0); Non-African American GFR(CKD) 80.2 (60.0-200.0); Potassium 4.7 mmol/L (3.5-5.5); Sodium 142 mmol/L (135-145); Total Protein 5.8 g/dL (6.2-8.2); VLDL Calculation 15.56 mg/dL (5.00-40.00)
[2022-08-20 19:01] LABS: Basophils # (A) 0.02 X 10*3/uL (0.00-0.10); Basophils % (A) 0.3 %; Eosinophils # (A) 0.08 X 10*3/uL (0.04-0.35); Eosinophils % (A) 1.4 %; HCT 42.7 % (37.2-46.3); Immature Grans, Automated 0.2 %; Lymphocytes # (A) 2.23 X 10*3/uL (0.90-5.00); Lymphocytes % (A) 38.8 %; MCH 32.2 pg (27.0-32.0); MCHC 32.8 g/dL (32.0-37.0); MCV 98.2 fL (80.0-97.0); Mean Platelet Volume 10.8 fL (9.5-12.2); Monocytes % (A) 8.7 %; NRBC Per 100 WBC 0 /100 WBCS (0.0-0.0); Neutrophils # (A) 2.91 X 10*3/uL (1.80-7.70); Neutrophils % (A) 50.6 %; Platelet Count 173 X 10*3/uL (140-440); RBC 4.35 X 10*6/uL (4.10-5.20); RDW 12.2 % (11.5-14.5); WBC 5.75 X 10*3/uL (4.50-10.00)
== END | disposition home or self-care (01) ==
LOC: LABWHC1 11:01
PROVIDERS: ATTEND Internal Medicine
DX: F33.3 Major depressive disorder, recurrent, severe with psychotic symptoms (principal); Z79.899 Other long term (current) drug therapy
CPT/HCPCS: 36415; 80053; 80061; 80164; 83036; 84439; 84443; 85025

== ENCOUNTER → 2022-10-15 | Outpatient (CLI) | payer MEDICARE, OTHER ==
--- NOTE | 2022-10-16 09:06 | MM ---
Reason for Exam: Screening (asymptomatic). Last mammogram was performed 1 year(s) and 1 month(s) ago. Patient History: Menarche at age 18. Patient has no children. Hormonal Contraceptives, starting at age 23 for 25 years. Last menstrual period: 09/13/2022 Risk Values: Arianna 5 year model risk: 0.9%. NCI Lifetime model risk: 9.2%. Prior Study Comparison: 11/20/2019 Right Diagnostic Mammogram, [facility]. 08/11/2020 Bilateral Screening Mammogram, [facility]. 09/15/2021 Bilateral Screening Mammogram, [facility]. Tissue Density: The breast tissue is heterogeneously dense. This may lower the sensitivity of mammography. Findings: Analyzed By CAD. There is no suspicious group of microcalcifications or new suspicious mass in either breast. Benign-appearing round calcifications bilaterally. Overall Assessment: Benign, BI-RAD 2 Management: Screening Mammogram of both breasts in 1 year. A clinical breast exam by your physician is recommended on an annual basis and results should be correlated with mammographic findings. Electronically signed and approved by: Yann Devlin D.O.
== END | disposition home or self-care (01) ==
LOC: RADMAMWWP 08:09
PROVIDERS: ATTEND Internal Medicine
DX: Z12.31 Encounter for screening mammogram for malignant neoplasm of breast (principal)
CPT/HCPCS: 77063; 77067

== ENCOUNTER → 2023-07-01 | Outpatient (CLI) | payer MEDICARE, OTHER ==
[2023-07-01 11:01] LABS: Basophils # (A) 0.03 X 10*3/uL (0.00-0.10); Basophils % (A) 0.5 %; Eosinophils # (A) 0.12 X 10*3/uL (0.04-0.35); HCT 45.8 % (37.2-46.3); Lymphocytes # (A) 2.47 X 10*3/uL (0.90-5.00); Lymphocytes % (A) 41.2 %; MCH 32.1 pg (27.0-32.0); MCHC 32.8 d/dL (32.0-37.0); MCV 98.1 FL (80.0-97.0); Mean Platelet Volume 10.6 FL (9.5-12.2); Monocytes # (A) 0.51 X 10*3/uL (0.20-1.00); Monocytes % (A) 8.5 %; NRBC Per 100 WBC 0 X 10*3/uL (0.00-0.01); Neutrophils # (A) 2.85 X 10*3/uL (1.80-7.70); Neutrophils % (A) 47.6 %; Platelet Count 242 X 10*3/uL (140-440); RBC 4.67 X 10*6/uL (4.10-5.20); RDW 11.7 % (11.5-14.5); WBC 5.99 X 10*3/uL (4.50-10.00)
[2023-07-01 11:42] LABS: ALT 13 U/L (8-44); AST 11 U/L (13-35); Albumin 4.3 d/dL (3.8-4.9); Albumin/Globulin Ratio 1.95 Ratio (1.60-3.17); Alkaline Phosphatase 69 U/L (41-126); BUN/Creat Ratio 23.12 Ratio (12.00-20.00); Blood Urea Nitrogen 18.5 mg/dL (9.0-27.0); Calcium 9.8 mg/dL (8.7-10.3); Chloride 103 mmol/L (96-109); Chol/HDL Ratio 4.75 Ratio; Globulin 2.2 d/dL (1.6-3.3); Glucose 95 mg/dL (70-110); LDL Cholesterol,Calculated 122.8 mg/dL (0.0-131.0); Potassium 5.1 mmol/L (3.5-5.5); Sodium 140 mmol/L (135-145); Total Bilirubin 0.4 mg/dL (0.3-1.2); Total Protein 6.5 d/dL (6.2-8.2)
[2023-07-01 12:02] LABS: T4, Free (Free Thyroxine) 1.19 ng/dL (0.80-1.80)
== END | disposition home or self-care (01) ==
LOC: LABWHC1 07:47
PROVIDERS: ATTEND Nurse Practitioner Family
DX: F33.3 Major depressive disorder, recurrent, severe with psychotic symptoms (principal); Z79.899 Other long term (current) drug therapy
CPT/HCPCS: 36415; 80053; 80061; 80164; 83036; 84439; 84443; 85025

== ENCOUNTER → 2023-09-12 | Outpatient (CLI) | payer MEDICARE, OTHER | END | disposition home or self-care (01) | LOC: LABWHC1 15:36 | PROVIDERS: ATTEND Psychiatry & Neurology Neurology | DX: I49.9 Cardiac arrhythmia, unspecified (principal); I45.4 Nonspecific intraventricular block; R94.31 Abnormal electrocardiogram [ECG] [EKG] | CPT/HCPCS: 93005 ==

== ENCOUNTER → 2023-10-08 | Outpatient (CLI) | payer MEDICARE, OTHER ==
--- NOTE | 2023-10-08 18:06 | MM ---
Reason for Exam: Screening (asymptomatic). Last screening mammogram was performed 12 month(s) ago. Patient History: Menarche at age 18. Patient has no children. Hormonal Contraceptives, starting at age 23 for 25 years. Risk Values: Arianna 5 year model risk: 1.0%. NCI Lifetime model risk: 9.1%. Prior Study Comparison: 08/11/2020 Bilateral Screening Mammogram, [facility]. 09/15/2021 Bilateral Screening Mammogram, [facility]. 10/15/2022 Bilateral MG 3D screening mammo w/cad, [facility]. Tissue Density: The breast tissue is heterogeneously dense. This may lower the sensitivity of mammography. Findings: Analyzed By CAD. There is no suspicious group of microcalcifications or new suspicious mass in either breast. Overall Assessment: Negative, BI-RAD 1 Management: Screening Mammogram of both breasts in 1 year. . Patient should continue monthly self-breast exams. A clinical breast exam by your physician is recommended on an annual basis. This exam should not preclude additional follow-up of suspicious palpable abnormalities. Note on Arianna scores and lifetime risk: 1. A Arianna score greater than 3% is considered moderate risk. If this is the case, consider specialist referral to assess eligibility for a risk reducing agent. 2. If overall lifetime risk for the development of breast cancer is 20% or higher, the patient may qualify for future screening with alternating mammogram and breast MRI. Electronically signed and approved by: Jack William M.D. Radiologist
--- NOTE | 2023-10-09 20:20 | BD ---
EXAMINATION TYPE: Axial Bone Density DATE OF EXAM: 10/08/2023 CLINICAL HISTORY: 52 years old Female. ICD-10 CODE: N95.8 OTHER SPECIFIED MENOPAUSAL Height: 62 Weight: 188 FRAX RISK QUESTIONS: Glucocorticoids (More than 3mos): yes (Ex: prednisone, prednisolone, methylprednisolone, dexamethasone, and hydrocortisone). History of Fracture in Adulthood: yes RISK FACTORS HISTORY OF: hx of bilat feet broken and both hands as an adult Surgery to Spine no but stimulater in her lower back area, for pain Family History of Osteoporosis: unknown, poor historian Postmenopausal woman: LMP, August 22 Frequent falls: unsteady Hyperparathyroidism: no Adrenal Insufficiency: no MEDICATIONS: Prednisone or other steroids: yes, symbacort and albuteral copd and asthma for many yrs Additional Medications: bp med, Depakote, Celexa, reflux meds, calcium Additional History: hx of seizures, anxiety, reflux, hypertension, cerebral palsy, arthritis EXAM MEASUREMENTS: Bone mineral densitometry was performed using the Embedly System. Bone mineral density as measured about the Lumbar spine is: ----- L1-L4(G/cm2): 1.050 T Score Values are as follows: ----- L1: -1.3 ----- L2: -1.4 ----- L3: -0.7 ----- L4: -1.2 ----- L1-L4: -1.1 Z Score Values are as follows: ----- L1: -1.5 ----- L2: -1.7 ----- L3: -0.9 ----- L4: -1.4 ----- L1-L4: -1.3 Bone mineral density has: Increased 13.5% since study of: 10.19.2014 Bone mineral density about the R hip (g/cm2): 0.908 Bone mineral density about the L hip (g/cm2): 0.982 T Score values are as follows: -----R Neck: -1.1 -----L Neck: -0.8 -----R Total: -0.8 -----L Total: -0.2 Z Score values are as follows: -----R Neck: -0.7 -----L Neck: -0.4 -----R Total: -0.8 -----L Total: -0.2 Bone mineral density has: Increased 4.4% since study of: 10.19.2014 FRAX%s: The graph provided illustrates a 12.0% chance for a major osteoporotic fx and a 0.8% chance f or the hips probability for fx in 10 years time. IMPRESSION: Osteopenia (T Score between -2.5 and -1). There is slightly increased risk of fracture and the patient may be considered for treatment. Re-Screen 2-5 years. NOTE: T-SCORE=SD OF THE YOUNG ADULT MEAN.
== END | disposition home or self-care (01) ==
LOC: RADMAMWWP 06:59
PROVIDERS: ATTEND Internal Medicine
DX: Z12.31 Encounter for screening mammogram for malignant neoplasm of breast (principal); M85.89 Other specified disorders of bone density and structure, multiple sites; N95.8 Other specified menopausal and perimenopausal disorders
CPT/HCPCS: 77063; 77067; 77080

== ENCOUNTER → 2024-02-21 | Outpatient (CLI) | payer MEDICARE, OTHER ==
[2024-02-21 15:00] LABS: Basophils # (A) 0.04 X 10*3/uL (0.00-0.10); Basophils % (A) 0.6 %; Eosinophils # (A) 0.13 X 10*3/uL (0.04-0.35); HCT 45.6 % (37.2-46.3); HGB 14.7 g/dL (12.0-15.0); Lymphocytes # (A) 2.38 X 10*3/uL (0.90-5.00); Lymphocytes % (A) 36.1 %; MCH 31.7 pg (27.0-32.0); MCHC 32.2 g/dL (32.0-37.0); MCV 98.5 FL (80.0-97.0); Mean Platelet Volume 10.8 FL (9.5-12.2); Monocytes # (A) 0.54 X 10*3/uL (0.20-1.00); Monocytes % (A) 8.2 %; NRBC Per 100 WBC 0 X 10*3/uL (0.00-0.01); Neutrophils # (A) 3.49 X 10*3/uL (1.80-7.70); Neutrophils % (A) 52.8 %; Platelet Count 249 X 10*3/uL (140-440); RBC 4.63 X 10*6/uL (4.10-5.20); RDW 12.3 % (11.5-14.5)
[2024-02-21 15:32] LABS: ALT 13 U/L (8-44); AST 13 U/L (13-35); Albumin 4.2 g/dL (3.8-4.9); Alkaline Phosphatase 58 U/L (41-126); BUN/Creat Ratio 29.12 Ratio (12.00-20.00); Blood Urea Nitrogen 23.3 mg/dL (9.0-27.0); Calcium 8.9 mg/dL (8.7-10.3); Carbon Dioxide 25.1 mmol/L (21.6-31.8); Chloride 108 mmol/L (96-109); Chol/HDL Ratio 4.93 Ratio; Globulin 2.1 g/dL (1.6-3.3); Glucose 87 mg/dL (70-110); LDL Cholesterol,Calculated 122.7 mg/dL (0.0-131.0); Potassium 4.8 mmol/L (3.5-5.5); Sodium 144 mmol/L (135-145); T4, Free (Free Thyroxine) 1.27 ng/dL (0.80-1.80); Total Bilirubin <0.2 mg/dL (0.3-1.2); Total Protein 6.3 g/dL (6.2-8.2)
[2024-02-21 18:22] LABS: Valproic Acid (Depakene) 56.8 UG/ML (50.0-100.0)
== END | disposition home or self-care (01) ==
LOC: LABWHC1 09:42
PROVIDERS: ATTEND Nurse Practitioner Family
DX: F32.9 Major depressive disorder, single episode, unspecified (principal); Z79.899 Other long term (current) drug therapy
CPT/HCPCS: 36415; 80053; 80061; 80164; 83036; 84439; 84443; 85025

== ENCOUNTER → 2024-06-17 | Outpatient (CLI) | payer MEDICARE, OTHER | END | disposition home or self-care (01) | LOC: LABWHC1 15:49 | PROVIDERS: ATTEND Psychiatry & Neurology Neurology | DX: I49.9 Cardiac arrhythmia, unspecified (principal) | CPT/HCPCS: 36415; 93005 ==

== ENCOUNTER → 2024-10-09 | Outpatient (CLI) | payer MEDICARE, OTHER ==
--- NOTE | 2024-10-12 09:20 | MM ---
Reason for Exam: Screening (asymptomatic). Last screening mammogram was performed 12 month(s) ago. Patient History: Menarche at age 18. Patient has no children. Hormonal Contraceptives, starting at age 23 for 25 years. Risk Values: Arianna 5 year model risk: 1.0%. NCI Lifetime model risk: 8.9%. Prior Study Comparison: 09/15/2021 Bilateral Screening Mammogram, [facility]. 10/15/2022 Bilateral MG 3D screening mammo w/cad, [facility]. 10/08/2023 Bilateral MG 3D screening mammo w/cad, [facility]. Tissue Density: The breasts are heterogeneously dense, which may obscure small masses. Analyzed By CAD. Overall Assessment: Benign, BI-RAD 2 Management: Screening Mammogram of both breasts in 1 year. Electronically signed and approved by: Anant Song M.D.
== END | disposition home or self-care (01) ==
LOC: RADMAMWWP 15:34
PROVIDERS: ATTEND Internal Medicine
DX: Z12.31 Encounter for screening mammogram for malignant neoplasm of breast (principal); R92.333 Mammographic heterogeneous density, bilateral breasts
CPT/HCPCS: 77063; 77067

== ENCOUNTER → 2025-03-26 | Outpatient (CLI) | payer MEDICARE, OTHER ==
[2025-03-26 15:24] LABS: Basophils # (A) 0.03 X 10*3/uL (0.00-0.10); Basophils % (A) 0.6 %; Eosinophils # (A) 0.08 X 10*3/uL (0.04-0.35); Eosinophils % (A) 1.6 %; HCT 43.3 % (37.2-46.3); HGB 13.6 g/dL (12.0-15.0); Lymphocytes # (A) 1.93 X 10*3/uL (0.90-5.00); Lymphocytes % (A) 37.8 %; MCH 30.8 pg (27.0-32.0); MCHC 31.4 g/dL (32.0-37.0); Mean Platelet Volume 10.4 FL (9.5-12.2); Monocytes # (A) 0.43 X 10*3/uL (0.20-1.00); Monocytes % (A) 8.4 %; NRBC Per 100 WBC 0 X 10*3/uL (0.00-0.01); Neutrophils # (A) 2.63 X 10*3/uL (1.80-7.70); Neutrophils % (A) 51.4 %; Platelet Count 257 X 10*3/uL (140-440); RBC 4.42 X 10*6/uL (4.10-5.20); RDW 12.4 % (11.5-14.5); WBC 5.11 X 10*3/uL (4.50-10.00)
[2025-03-26 16:03] LABS: ALT 14 U/L (8-44); AST 15 U/L (13-35); Albumin 4.2 g/dL (3.8-4.9); Alkaline Phosphatase 62 U/L (41-126); Blood Urea Nitrogen 18.9 mg/dL (9.0-27.0); Calcium 8.8 mg/dL (8.7-10.3); Carbon Dioxide 24.7 mmol/L (21.6-31.8); Chloride 108 mmol/L (96-109); Chol/HDL Ratio 3.97 Ratio; Globulin 2.1 g/dL (1.6-3.3); Glucose 99 mg/dL (70-110); LDL Cholesterol,Calculated 122.1 mg/dL (0.0-131.0); Potassium 4.7 mmol/L (3.5-5.5); Sodium 142 mmol/L (135-145); Total Bilirubin 0.2 mg/dL (0.3-1.2); Total Protein 6.3 g/dL (6.2-8.2)
[2025-03-26 16:04] LABS: Bilirubin, Conjugated <0.20 mg/dL (0.20-0.40); Bilirubin,Unconjugated >0 mg/dL (0.20-1.00); T4, Free (Free Thyroxine) 1.33 ng/dL (0.80-1.80)
[2025-03-26 22:14] LABS: Valproic Acid (Depakene) 69.1 UG/ML (50.0-100.0)
== END | disposition home or self-care (01) ==
LOC: LABWHC1 09:16
PROVIDERS: ATTEND Internal Medicine
DX: Z00.01 Encounter for general adult medical examination with abnormal findings (principal); Z13.220 Encounter for screening for lipoid disorders; I13.10 Hypertensive heart and chronic kidney disease without heart failure, with stage 1 through stage 4 chronic kidney disease, or unspecified chronic kidney disease; N18.9 Chronic kidney disease, unspecified; E55.9 Vitamin D deficiency, unspecified; Z79.899 Other long term (current) drug therapy
CPT/HCPCS: 36415; 80053; 80061; 80164; 82248; 82306; 83036; 84439; 84443; 85025